=== PATIENT | female | born 2000 | race Caucasian/White ===

== ENCOUNTER 2024-06-23 11:09 | Outpatient (OUT) | payer OTHER, SELFPAY ==
--- NOTE | 2024-06-23 11:16 | US_ITS ---
[address] [address] Patient Name: FRANCK GRIFFIN MRN: [id number] date: 2000 Sex: F Assigned Patient Location: US Current Patient Location: US Accession/Order Number: [id number] Exam Date: 06/23/2024 11:17 Report Date: 06/23/2024 12:06 At the request of: SANJUANA KESSLER Procedure: US OB transvaginal EXAMINATION: US OB transvaginal HISTORY: Amenorrhea, Positive Examination COMPARISON: No relevant comparison available. FINDINGS: Transvaginal images Kang intrauterine gestation Gestational sac: 2.36 cm, 7 weeks 0 days CRL: 1.55 cm, 8 weeks 0 days Yolk sac: 2.3 mm Heart rate: 160 beats minute Cervix: Closed, 4.4 cm in length The uterus is normal The ovaries are normal Clinical age: 7 weeks 4 days Clinical OBED: 02/05/2025 Ultrasound age: 7 weeks 4 days Ultrasound OBED: 02/05/2025 US/US OB transvaginal IMPRESSION: Viable kang intrauterine gestation measuring 7 weeks 4 days Electronically authenticated by: JADE BURNS Date: 06/23/2024 12:06
== END 2024-06-23 11:10 | disposition home or self-care (01) ==
LOC: US 11:12
PROVIDERS: Visit Provider Midwife
DX: Z32.01 Encounter for pregnancy test, result positive (principal); Z3A.01 Less than 8 weeks gestation of pregnancy; N91.2 Amenorrhea, unspecified
CPT/HCPCS: 76817

== ENCOUNTER 2024-11-16 08:20 | Outpatient (RCR) | payer OTHER, SELFPAY ==
[2024-11-16 10:15] VITALS: BP 138/88; PULSE 85; TEMP 36.8; O2SAT 98
[2024-11-16] MEDS: RHO(D) IMMUNE GLOBULIN 1,500 UNIT SYRINGE 1500 UNIT IM (10:18)
== END 2024-11-17 08:14 | disposition home or self-care (01) ==
LOC: LAB 08:20
PROVIDERS: Visit Provider Midwife
DX: O26.893 Other specified pregnancy related conditions, third trimester (principal); Z67.91 Unspecified blood type, Rh negative; Z3A.00 Weeks of gestation of pregnancy not specified
CPT/HCPCS: 36415; 86850; 86900; 86901; 96372; J2791

== ENCOUNTER 2024-12-30 11:46 | Observation (INO) | payer OTHER, SELFPAY ==
--- OUTSIDE RECORDS SUMMARY | 2024-12-16 09:00 | XMS_ITS | Encounter Summary ---
Author Organization [facility] Address [address] [place] [address] Care Team Providers Care Wire Basket Maker Name Role Phone Rachelle Gibson MD Primary Care Provider [phone] Encounter Details Date Type Department Care Team (Latest Contact Info) Description 12/16/2024 9:00 AM EDT Routine [facility] [address] [place] [address] Fideila Varma CNM [address] [place] [phone] Encounter for care of first , third trimester ([facility]) (Primary Dx) Social History Tobacco Use Types Packs/Day Years Used Date Smoking Tobacco: Never Smokeless Tobacco: Never Alcohol Use Standard Drinks/Week Comments Not Currently 0 (1 standard drink = 0.6 oz pur e alcohol) Estimated Date of Delivery Comme nts Yes 02/04/2025 Based on last me nstrual period of 04/30/2024 (Exact Date) Sex and Gender Information Value Date Recorded Sex Assigned at Not on file Legal Sex Female 7:19 PM EDT Gender Identity Not on file Sexual Orientation Not on file documented as of this encounter Last Filed Vital Signs Vital Sign Reading Time Taken Comments Blood Pressure 118/80 12/16/2024 9:16 AM EDT Pulse - - Temperature - - Respiratory Rate - - Oxygen Saturation - - Inhaled Oxygen Concentration - - Weight 88.9 kg (196 lb) 12/16/2024 9:16 AM EDT Height - - Body Mass Index 31.16 06/13/2021 12:00 PM EST documented in this encounter Progress Notes * Fidelia Varma CNM - 12/16/2024 9:00 AM EDT Subjective No chief complaint on file. Martha Foreman is a 24 y.o. at 32w6d with a working estimated date of delivery of 02/04/2025, by Last Menstrual Period who presents for a routine visit. She denies vaginal bleeding, leakage of fluid, decreased movements, or contractions. OB History Para Term AB Living 1 SAB IAB Ectopic Multiple Live Births # Outcome Date GA Lbr Ra/2nd Weight Sex Type Anes PTL Lv 1 Current Her is complicated by: No complications Objective Physical Exam Weight: 196 lb Expected Total Weight Gain: 11 lb-19 lb Pregravid BMI: 30.53 BP: 118/80 Urine protein-negative Urine glucose-negative Assessment/Plan Diagnoses and all orders for this visit: Encounter for care of first , third trimester visit today. Patient is doing well, reports frequent, regular movement. No c/o at this visit. Denies pain, leaking of fluid, no bleeding and no contractions. Continue vitamin. Labs reviewed. GBS taken. Expected mode of delivery vaginal Follow up in 1 week for a routine visit. documented in this encounter Plan of Treatment Upcoming Encounters Date Type Department Care Team (Late st Contact Info) Description 01/12/2025 9:15 AM EDT Routine [facility] OB [address] [place] [address] Fidelia Varma CNM [facility] [place], [place] [phone] documented as of this encounter Visit Diagnoses Diagnosis Encounter for care of first , third trimester ([facility])- Primary documented in this encounter Care Teams Wire Basket Maker Relationship Specialty Start Date End Date Rachelle Gibson MD [address] [place] [phone] PCP - General Family Medicine 11/13/22 documented as of this encounter
--- OUTSIDE RECORDS SUMMARY | 2024-12-30 10:15 | XMS_ITS | Encounter Summary ---
Author Organization [facility] Address [address] [place] [address] Care Team Providers Care Check Out Cashier Name Role Phone Rachelle Gibson MD Primary Care Provider [phone] Encounter Details Date Type Department Care Team (Late st Contact Info) Description 12/30/2024 10:15 AM EDT Routine [facility] [address] [place] [phone] Fidelia Varma, [place] [address] Arrived Social History Tobacco Use Types Packs/Day Years [...] Sign Reading Time Taken Comments Blood Pressure 140/90 12/30/2024 10:16 AM EDT Pulse - - Temperature - - Respiratory Rate - - Oxygen Saturation - - Inhaled Oxygen Concentration - - Weight 88.9 kg (196 lb) 12/30/2024 10:16 AM EDT Height - - Body Mass Index 31.16 06/13/2021 12:00 PM EST documented in this encounter Plan of Treatment Upcoming Encounters Date Type Department Care Team (Late st Contact Info) Description 01/12/2025 9:15 AM EDT Routine [facility] [address] [place] [address] Fidelia Varma, CNM [address] [place] [address] documented as of this encounter Visit Diagnoses Not on filedocumented in this encounter Care Teams Check Out Cashier Relationship Specialty Start Date End Date Rachelle Gibson MD [address] [place] [address] PCP - General Family Medicine 11/13/22 documented as of this encounter
--- NOTE | 2024-12-30 11:48 | US_ITS ---
[place] [address] Patient Name: FRANCK GRIFFIN MRN: [id number] date: 2000 Sex: F Assigned Patient Location: [facility] Current Patient Location: [facility] Accession/Order Number: [id number] Exam Date: 12/30/2024 12:57 Report Date: 12/30/2024 12:58 At the request of: SANJUANA KESSLER APRN, CNM Procedure: US OB BPP w non-stress US OB BPP w non-stress 12/30/2024 12:29 PM SIGNS AND SYMPTOMS: ^na ^high blood pressure \S.br\ PROTOCOL: Transabdominal sonographic images of the gravid uterus COMPARISON: None FINDINGS: Estimated gestational age is 34 weeks and 6 days. Amniotic fluid index is 17.62 cm with the deepest vertical pocket measuring 5.6 cm. heart rate is 155 bpm. Biophysical profile: movements: 2/2 tone: 2/2 breathing movements: 2/2 Amniotic fluid volume: 2/2 US/US OB BPP w non-stress IMPRESSION: Biophysical profile score: 8/8 Impression dictated by: Denver Wadsworth M.D. 12/30/2024 12:58 PM Dictation Location: [facility] Electronically authenticated by: [id number] Y Date: 12/30/2024 12:58
--- OUTSIDE RECORDS SUMMARY | 2024-12-30 11:49 | XMS_ITS | Encounter Summary ---
Author Organization [facility] Address [address] [place] [address] Care Team Providers Care Financial Aid Advisor Name Role Phone Rachelle Gibson MD Primary Care Provider Encounter Details Date Type Department Care Team (Late Contact Info) Description 11/19/2024 Results Follow-Up [facility] [address] [place] [address] Tami Turpin MA Social History Tobacco Use Types Packs/Day Years [...] on file documented as of this encounter Plan of Treatment Upcoming Encounters Date Type Department Care Team (Late Contact Info) Description 01/12/2025 9:15 AM EDT Routine [facility] [address] [place] [address] Fidelia Varma, SHEM [address] [place] [address] documented as of this encounter Visit Diagnoses Not on filedocumented in this encounter Care Teams Financial Aid Advisor Relationship Specialty Start Date End Date Rachelle Gibson MD [facility] [place] [address] PCP - General Family Medicine 11/13/22 documented as of this encounter
--- OUTSIDE RECORDS SUMMARY | 2024-12-30 11:49 | XMS_ITS | Clinical Summary ---
Author Organization [facility] Address [address] [place] [address] Care Team Providers Care Humanities Instructor Name Role Phone Rachelle Gibson MD Primary Care Provider [phone] Allergies Active Allergy Reactions Criticality Noted Date Comments Minocycline Rash Low 06/26/2024 Medications Vit-Fe Fumarate-FA ( 1 PLUS 1 PO) Take by mouth Active Encounters Date Type Department Care Team Description 12/30/2024 10:15 AM EDT Routine [facility] [address] [place] [address] Fidelia Varma CNM Arrived 12/30/2024 Bamboo flowsheet [facility] [address] [place] [address] Fidelia Varma CNM 12/16/2024 9:00 AM EDT Routine [facility] [address] [place] [phone] Fidelia Varma CNM Encounter for care of first , third trimester ([facility]) (Primary Dx) 12/16/2024 Bamboo flowsheet [facility] [address] [place] [address] Fidelia Varma CNM 11/26/2024 8:45 AM EDT Ancillary Procedure [facility] ULTRASOUND [address] [facility] [address] [place] [phone] related condition in second trimester ([facility]) 11/26/2024 Travel 11/19/2024 Results Follow-Up [facility] [address] [place] [address] Tami Turpin MA 11/18/2024 8:45 AM EDT Routine [facility] OB [address] [place] [address] Fidelia Varma CNM Screening for diabetes mellitus (DM); Screening for iron deficiency anemia; related condition in second trimester ([facility]) 11/18/2024 Bamboo flowsheet [facility] OB [address] [place] [address] Fidelia Varma CNM 10/21/2024 8:30 AM EDT Routine [facility] [address] [place] [address] Fidelia Varma CNM Encounter for care of first , second trimester ([facility]) (Primary Dx) 10/21/2024 Results Follow-Up [facility] OB [address] [place] [address] Fidelia Varma CNM 10/21/2024 Bamboo flowsheet [facility] R OB [address] [place] [address] Fidelia Varma CNM from Last 3 Months Family History Relation Name Status Comments Father Alive Mother Alive Social History Tobacco Use Types Packs/Day Years Used Date Smoking Tobacco: Never Smokeless Tobacco: Never Tobacco Cessation:Counseling Given: Not Answered Alcohol Use Standard Drinks/Week Comments Not Currently [...] on file Sexual Orientation Not on file Last Filed Vital Signs Vital Sign Reading Time Taken Comments Blood Pressure 140/90 12/30/2024 10:16 AM EDT Pulse - - Temperature - - Respiratory Rate - - Oxygen Saturation - - Inhaled Oxygen Concentration - - Weight 88.9 kg (196 lb) 12/30/2024 10:16 AM EDT Height 168.9 cm (5' 6.5 ) 06/13/2021 12:00 PM ES T Body Mass Index 31.16 06/13/2021 12:00 PM EST Plan of Treatment Upcoming Encounters Date Type Department Care Team (Late st Contact Info) Description 01/12/2025 9:15 AM EDT Routine [facility] [address] [place] [address] Fidelia Varma, CNM [address] [place] [address] Health Maintenance Due Date Last Done Comments Influenza Vaccine (Season Ended) 2025 Procedures Procedure Name Priority Date/Time Associated Diagnosis Comments US OB FOLLOW UP TRANSABDOMINAL APPROACH Routine 11/26/2024 9:09 AM EDT related condition in second trimester ([facility]) CBC Routine 11/18/2024 9:55 AM EDT Screening for iron deficiency anemia GLUCOSE, GESTATIONAL SCREEN (50G)-135 CUTOFF Routine 11/18/2024 9:55 AM EDT Screening for diabetes mellitus (DM) from Last 3 Months Results * US OB follow up transabdominal approach (11/26/2024 9:09 AM EDT) Anatomical Region Laterality Modality Body Ultrasound 11/26/2024 6:37 PM EDT Narrative 11/26/2024 6:37 PM EDT EXAM: OB Ultrasound: REASON FOR EXAM: Growth. COMPARISON: 09/23/2024, 06/23/2024. TECHNIQUE: Grayscale and M-mode Doppler imaging is performed. FINDINGS: heart rate: 136 bpm DAYANA: 19.9 cm (9.0 - 23.4) BPD: 7.6 cm HC: 27.8 cm AC: 26.2 cm FL: 5.8 cm Cervix length: 3.4 cm GA for sonogram: 30.0 wks (27.6 - 32.5) OBED: 02/05/2025 Weight Estimate: Weight: 1558 gm /3 lbs, 6 oz (1330 - 1785 gm) Hadlock Normal: 1541 gm (1279 - 1803 gm) Hadlock Wt%: 53% for 29.9 wks LMP: 05/01/24 AGE BY LMP: 29 w 6 d AGE PRIOR US: 21 w 0 d AGE BY US TODAY: 30 w 3 d OBED BY LMP: 02/05/25 OBED PRIOR US: 02/02/25 OBED BY US TODAY: 02/01/25 Gestation: Single Position: Cephalic Placenta Location: Anterior Somatic movement: Yes IMPRESSION: Single live intrauterine gestation in cephalic position estimated at 30.0 weeks. This is concordant with the provided clinical dates and prior ultrasound. *This report is generated using voice recognition reporting (eKonnekt). On occasion [email or web address] erroneously drops words from the report or replaces the spoken word with similar sounding words. Please call with any questions/concerns regarding this report.* Dictated and transcribed 11/26/2024/teressa This report has been electronically signed and approved by the interpreting radiologist. Procedure Note Frandy Cortes MD - 11/26/2024 EXAM: OB Ultrasound: REASON FOR EXAM: Growth. COMPARISON: 09/23/2024, 06/23/2024. TECHNIQUE: Grayscale and M-mode Doppler imaging is performed. FINDINGS: heart rate: 136 bpm DAYANA: 19.9 cm (9.0 - 23.4) BPD: 7.6 cm HC: 27.8 cm AC: 26.2 cm FL: 5.8 cm Cervix length: 3.4 cm GA for sonogram: 30.0 wks (27.6 - 32.5) OBED: 02/05/2025 Weight Estimate: Weight: 1558 gm /3 lbs, 6 oz (1330 - 1785 gm) Hadlock Normal: 1541 gm (1279 - 1803 gm) Hadlock Wt%: 53% for 29.9 wks LMP: 05/01/24 AGE BY LMP: 29 w 6 d AGE PRIOR US: 21 w 0 d AGEBY US TODAY: 30 w 3 d OBED BY LMP: 02/05/25 OBED PRIOR US: 02/02/25 EDDBY US TODAY: 02/01/25 Gestation: Single Position: Cephalic Placenta Location: Anterior Somatic movement: Yes IMPRESSION: Single live intrauterine gestation in cephalic position estimated at 30.0weeks. This is concordant with the provided clinical dates and priorultrasound. *This report is generated using voice recognition reporting (eKonnekt).On occasion [email or web address] erroneously drops words from the report orreplaces the spoken word with similar sounding words. Please call with anyquestions/concerns regarding this report.* Dictated and transcribed 11/26/2024/teressa This report has been electronically signed and approved by theinterpreting radiologist. us Fidelia Varma CNM IMG OB US PROCEDURES Final R esult * GLUCOSE, GESTATIONAL SCREEN (50G)-135 CUTOFF (11/18/2024 9:55 AM EDT) GLUCOSE, GESTATIONAL SCREEN (50G)-135 CUTOFF 73 <135 mg/dL [facility] 11/18/2024 9:55 AM EDT 11/18/2024 3:23 PM EDT Narrative Resulting Agency Comment Performing Organization Information Site ID: [email or web address] Name: [facility] Address: [address] [place] [phone] Director: Rody Acharya us Fidelia Varma CNM LAB BLOOD ORDERABLES Final R esult [facility] * (ABNORMAL) CBC (11/18/2024 9:55 AM EDT) WHITE BLOOD CELL COUNT 12.3(H) 3.8 - 10.8 Thousand/u L [facility] RED BLOOD CELL COUNT 4.03 3.80 - 5.10 Million/uL [facility] HEMOGLOBIN 11.8 11.7 - 15.5 g/dL [facility] HEMATOCRIT 36.5 35.0 - 45.0 % [facility] MCV 90.6 80.0 - 100.0 fL [facility] MCH 29.3 27.0 - 33.0 pg [facility] MCHC 32.3 32.0 - 36.0 g/dL [facility] Comment: For adults, a slight decrease in the calculated MCHC value (in the range of 30 to 32 g/dL) is most likely not clinically significant; however, it should be interpreted with caution in correlation with other red cell parameters and the patient's clinical condition. RDW 12.8 11.0 - 15.0 % [facility] PLATELET COUNT 335 140 - 400 Thousand/u L [facility] MPV 9.9 7.5 - 12.5 fL [facility] Blood Venous blood specimen / Unknown 11/18/2024 9:55 AM EDT 11/18/2024 3:23 PM EDT Narrative Resulting Agency Comment Performing Organization Information Site ID: [email or web address] Name: [facility] Address: [address] [place] [phone] Director: Rody Acharya Fidelia NOWAK LAB BLOOD ORDERABLES Final R esult [facility] from Last 3 Months Insurance [employer] Care Teams Humanities Instructor Relationship Specialty Start Date End Date Rachelle Gibson MD [address] [place] [address] PCP - General Family Medicine 11/13/22
--- OUTSIDE RECORDS SUMMARY | 2024-12-30 11:49 | XMS_ITS | Encounter Summary ---
Author Organization [facility] Address [address] [place] [address] Care Team Providers Care Machine Clothing Replacer Name Role Phone Rachelle Gibson MD Primary Care Provider [phone] Encounter Details Date Type Department Care Team (Late st Contact Info) Description 06/23/2024 Clinisync Result Encounter [facility] External Department Unsolicited Sanjuana Varma CNM [facility] [place], [place] [phone] Social History Tobacco Use Types Packs/Day Years Used Date Smoking Tobacco: Never Assessed Comments Unknown Sex and Gender Information Value Date Recorded Sex Assigned at Not on file Legal Sex Female 7:19 PM EDT Gender Identity Not on file Sexual Orientation Not on file documented as of this encounter Plan of Treatment Upcoming Encounters Date Type Department Care Team (Late st Contact Info) Description 01/12/2025 9:15 AM EDT Routine [facility] OB [address] [place] [phone] Sanjuana Varma CN [address] [place], [place] [phone] documented as of this encounter Procedures Procedure Name Priority Date/Time Associated Diagnosis Comments US OB TRANSVAGINAL 06/23/2024 12 :06 PM EST documented in this encounter Results * US OB TRANSVAGINAL (06/23/2024 12:06 PM EST) Anatomical Region Laterality Modality Other 06/23/2024 12:0 6 PM EST Narrative 06/23/2024 12:08 [place] [address] Ultrasound Report Signed Patient: FRANCK GRIFFIN MR#: [id number] : 2000 Acct:[id number] Age/Sex: 24 / F ADM Date: 06/23/24 Loc: US Attending Dr: SANJUANA VARMA APRN, CNM Ordering Physician: SANJUANA VARMA APRN, CNM Date of Service: 06/23/24 Procedure(s): US OB transvaginal Accession Number(s): [id number] cc: SANJUANA VARMA APRN, CNM; Physician,Non-Staff M.Luis Enrique [place] [id number] Patient Name: FRANCK GRIFFIN MRN: [id number] date: 2000 Sex: F Assigned Patient Location: US Current Patient Location: US Accession/Order Number: [id number] Exam Date: 06/23/2024 11:17 Report Date: 06/23/2024 12:06 At the request of: SANJUANA VARMA Procedure: US OB transvaginal EXAMINATION: US OB transvaginal HISTORY: Amenorrhea, Positive Examination COMPARISON: No relevant comparison available. FINDINGS: Transvaginal images Kang intrauterine gestation Gestational sac: 2.36 cm, 7 weeks 0 days CRL: 1.55 cm, 8 weeks 0 days Yolk sac: 2.3 mm Heart rate: 160 beats minute Cervix: Closed, 4.4 cm in length The uterus is normal The ovaries are normal Clinical age: 7 weeks 4 days Clinical OBED: 02/05/2025 Ultrasound age: 7 weeks 4 days Ultrasound OBED: 02/05/2025 US/US OB transvaginal IMPRESSION: Viable kang intrauterine gestation measuring 7 weeks 4 days Electronically authenticated by: JADE BURNS Date: 06/23/2024 12:06 Dictated By: Jade Burns M.D. Signed By: 06/23/24 1208 DD/ 1206 TD/TT: Hedis Abstractor: Procedure Note Radiology, Radiologist, MD - 06/23/2024 [place] [address] Ultrasound Report Signed Patient: FRANCK GRIFFIN RMR#: [id number] : 2000Acct:[id number] Age/Sex: 24 / FADM Date: 06/23/24 Loc: US Attending Dr: SANJUANA VARMA APRN, CNM Ordering Physician: SANJUANA VARMA APRN, CNM Date of Service: 06/23/24 Procedure(s): US OB transvaginal Accession Number(s): [id number] cc: SANJUANA VARMA APRN, CNM; Physician,Non-Staff M.DVirgil [place] [address] Patient Name: FRANCK GRIFFIN MRN: [id number] date: 2000 Sex: F Assigned Patient Location: US Current Patient Location: US Accession/Order Number: [id number] Exam Date: 06/23/2024 11:17 Report Date: 06/23/2024 12:06 At the request of: SANJUANA VARMA Procedure: US OB transvaginal EXAMINATION: US OB transvaginal HISTORY: Amenorrhea, Positive Examination COMPARISON: No relevant comparison available. FINDINGS: Transvaginal images Kang intrauterine gestation Gestational sac: 2.36 cm, 7 weeks 0 days CRL: 1.55 cm, 8 weeks 0 days Yolk sac: 2.3 mm Heart rate: 160 beats minute Cervix: Closed, 4.4 cm in length The uterus is normal The ovaries are normal Clinical age: 7 weeks 4 days Clinical OBED: 02/05/2025 Ultrasound age: 7 weeks 4 days Ultrasound OBED: 02/05/2025 US/US OB transvaginal IMPRESSION: Viable kang intrauterine gestation measuring 7 weeks 4 days Electronically authenticated by: JADE BURNS Date: 06/23/2024 12:06 Dictated By: Jade Burns M.D. Signed By:06/23/24 1208 DD/ 120 TD/TT: Hedis Abstractor: us Sanjuana Varma CNM [facility] Final Resu lt documented in this encounter Visit Diagnoses Not on filedocumented in this encounter Care Teams Machine Clothing Replacer Relationship Specialty Start Date End Date Rachelle Gibson MD [address] [place] [address] PCP - General Family Medicine 11/13/22 documented as of this encounter
--- OUTSIDE RECORDS SUMMARY | 2024-12-30 11:49 | XMS_ITS | Encounter Summary ---
Author Organization [facility] Address [address] [place] [address] Care Team Providers Care Egg Breaker Name Role Phone Rachelle Gibson MD Primary Care Provider [phone] Encounter Details Date Type Department Care Team (Late st Contact Info) Description 12/30/2024 Bamboo flowsheet [facility] OB [address] [place] [address] Fidelia Varma CN [address] [place], [place] [phone] Social History Tobacco Use Types Packs/Day Years [...] AM EDT Routine [facility] OB [address] [place] [address] Fidelia Varma CNM [address] [place], [place] [phone] documented as of this encounter Visit Diagnoses Not on filedocumented in this encounter Care Teams Egg Breaker Relationship Specialty Start Date End Date Rachelle Gibson MD [address] [place] [address] PCP - General Family Medicine 11/13/22 documented as of this encounter
--- OUTSIDE RECORDS SUMMARY | 2024-12-30 11:49 | XMS_ITS | Encounter Summary ---
Author Organization [facility] Address [address] [place] [address] Care Team Providers Care Deicer Kit Assembler Name Role Phone Rachelle Gibson MD Primary Care Provider [phone] Encounter Details Date Type Department Care Team (Late st Contact Info) Description 10/21/2024 Results Follow-Up [facility] OB [address] [place] [address] Fidelia Varma CN [address] [place], [place] [phone] Social History Tobacco Use Types Packs/Day Years [...] AM EDT Routine [facility] OB [address] [place] [address] Fidelia Varma, SHEM [address] [place], [place] [phone] documented as of this encounter Visit Diagnoses Not on filedocumented in this encounter Care Teams Deicer Kit Assembler Relationship Specialty Start Date End Date Rachelle Gibson MD [address] [place] [address] PCP - General Family Medicine 11/13/22 documented as of this encounter
--- OUTSIDE RECORDS SUMMARY | 2024-12-30 11:49 | XMS_ITS | Encounter Summary ---
Author Organization [facility] Address [address] [place] [address] Care Team Providers Care Airplane Designer Name Role Phone Rachelle Gibson MD Primary Care Provider [phone] Encounter Details Date Type Department Care Team (Late st Contact Info) Description 12/16/2024 Bamboo flowsheet [facility] OB [address] [place] [address] Fidelia Varma CN [address] [place], [place] [phone] Social History Tobacco Use Types Packs/Day Years [...] AM EDT Routine [facility] OB [address] [place] [address] Fidelia Varma CNM [address] [place], [place] [phone] documented as of this encounter Visit Diagnoses Not on filedocumented in this encounter Care Teams Airplane Designer Relationship Specialty Start Date End Date Rachelle Gibson MD [address] [place] [address] PCP - General Family Medicine 11/13/22 documented as of this encounter
[2024-12-30 11:55] VITALS: BP 141/89; PULSE 88
[2024-12-30 12:17] VITALS: BP 138/102; PULSE 97
[2024-12-30 12:20] LABS: Basophils Percent Auto 0.3 % (0.2-2.0); Eosinophils Absolute Auto 0.2 10^3/uL (0.0-0.7); Eosinophils Percent Auto 1.4 % (0.9-7.0); Hematocrit 33.7 % (36.0-48.0); Hemoglobin 11.5 g/dL (12.0-16.0); Immature Granulocytes Abs Auto 0.12 10^3/uL (0.00-0.03); Immature Granulocytes Pct Auto 0.9 % (0.0-0.5); Lymphocytes Absolute Auto 1.5 10^3/uL (1.2-3.8); Lymphocytes Percent Auto 11.6 % (20.5-60.0); Mean Corpuscular HGB Conc 34.1 g/dL (29.9-35.2); Mean Corpuscular Hemoglobin 29.2 pg (26.7-34.0); Mean Corpuscular Volume 85.5 fL (81.0-99.0); Mean Platelet Volume 10.2 fL (9.5-13.5); Monocytes Absolute Auto 0.9 10^3/uL (0.3-0.8); Neutrophils Absolute Auto 10.4 10^3/uL (1.4-6.5); Neutrophils Percent Auto 78.8 % (43.0-75.0); Platelet Count 312 10^3/uL (150-450); Red Blood Count 3.94 10^6/uL (4.20-5.40); Red Cell Distribution Width 12.3 % (11.0-15.0); White Blood Count 13.2 10^3/uL (4.0-11.0)
[2024-12-30 12:26] LABS: Anion Gap 14.5; Calcium 8.8 mg/dL (8.5-10.1); Carbon Dioxide 22.3 mmol/L (21.0-32.0); Chloride 103 mmol/L (98-107); Estimated GFR (African America >60 (>=60 mL/min/1.73m^2); Estimated GFR (Non-African Ame >60 (>=60 mL/min/1.73m^2); Glucose 80 mg/dL (74-106); Potassium 3.8 mmol/L (3.5-5.1); Sodium 136 mmol/L (136-145)
[2024-12-30 12:46] VITALS: BP 141/92; PULSE 95
[2024-12-30 12:47] LABS: Bilirubin Urine NEGATIVE (NEGATIVE); Blood Urine NEGATIVE (NEGATIVE); Clarity Urine CLEAR (CLEAR); Color Urine LT. YELLOW (YELLOW); Glucose Urine UA NEGATIVE (NEGATIVE); Ketones Urine NEGATIVE (NEGATIVE); Leukocyte Esterase Urine LARGE (NEGATIVE); Nitrite Urine NEGATIVE (NEGATIVE); Protein Urine NEGATIVE (NEG/TRACE); Urobilinogen Urine 0.2 EU/dL (0.2-1.0); pH Urine 7.5 (5.0-9.0)
[2024-12-30 12:48] LABS: Urine Microscopic Indicated YES
[2024-12-30 13:00] LABS: Alanine Aminotransferase 19 U/L (14-59); Albumin Globulin Ratio 0.5; Albumin Level 2.4 g/dL (3.4-5.0); Alkaline Phosphatase 215 U/L (46-116); Aspartate Amino Transferase 19 U/L (15-37); Bilirubin Direct <0.1 mg/dL (0.0-0.2); Bilirubin Total 0.2 mg/dL (0.2-1.0); Globulin 4.7 g/dL; Total Protein 7.1 g/dL (6.4-8.2)
[2024-12-30 13:02] LABS: Bacteria Urine SMALL #/HPF (NONE SEEN); Cast Seen? NONE SEEN #/LPF (NONE SEEN); Crystals Seen? None Seen #/HPF (None Seen); Mucus Urine TRACE (NONE SEEN); RBC Urine 0-2 #/HPF (0-2); Sperm Urine SEEN; Squamous Epithelial Cell Urine MANY #/LPF (NONE/RARE); Urine Culture Indicated YES-LC
[2024-12-30 13:05] LABS: Creatinine Urine Random 119.65 mg/dL (20.00-300.00); Protein Creatinine Ratio Urine 0.21; Total Protein Urine Random 24.8 mg/dL (<=11.9)
[2024-12-30 13:35] VITALS: BP 125/84; PULSE 84
[2024-12-30 14:04] LABS: Lactate Dehydrogenase 245 U/L (81-234)
[2024-12-30] MEDS: LABETALOL HCL 100 MG TABLET PO (14:21)
[2024-12-30 15:16] VITALS: BP 126/71; PULSE 77
[2024-12-30] MEDS: CEPHALEXIN 500 MG CAPSULE PO (15:17)
== END 2024-12-30 16:01 | disposition home or self-care (01) ==
LOC: FBC 11:47
PROVIDERS: Admitting Provider Midwife; Visit Provider Midwife
DX: O16.3 Unspecified maternal hypertension, third trimester (principal); Z3A.34 34 weeks gestation of pregnancy
CPT/HCPCS: 36415; 76818; 80048; 80076; 81001; 82570; 83615; 84156; 84550; 85025; 87086; G0378; G0379

== ENCOUNTER 2025-01-03 13:14 | Inpatient (IN) | payer OTHER, SELFPAY ==
[2025-01-03] VITALS (25 sets, daily range): BP systolic 108–163; BP diastolic 53–92; PULSE 74–142; TEMP 36.8–36.9
--- OUTSIDE RECORDS SUMMARY | 2025-01-03 13:18 | XMS_ITS | CCD ---
Author Organization [facility] Care Team Providers Care Fire Suppression Captain Name Role Phone Arthur RAMIREZ, Rachelle Kapoor Primary Care Provider [phone] FLORO, SANJUANA L Attending Unavailable FLORO, SANJUANA L Attending Unavailable FLORO, SANJUANA L Referring Unavailable FLORO, SANJUANA L Attending Unavailable FLORO, SANJUANA L Attending Unavailable FLORO, SANJUANA L Referring Unavailable FLORO, SANJUANA L Attending Unavailable FLORO, SANJUANA L Attending Unavailable FLORO, SANJUANA L Attending Unavailable FLORO, SANJUANA L Attending Unavailable Allergies Allergy Classification Reported Allergen(s) Allergy Type Date of Onset Reaction(s) Facility (20 sources) Minocycline Drug Allergy 06-26-2024 Rash [facility] Medications Current Medications Medication Drug Class(es) Dates Sig (Normalized) Sig (Original) cephalexin 500 mg oral capsule (3 sources) Cephalosporin Antibacterial Start: 12-30-2024 End: 01-09-2025 cephalexin (Keflex) 500 MG capsule Indications: Elevated blood pressure affecting in third trimester, antepartum ([facility]) , Acute cystitis without hematuria Take 1 capsule (500 mg) by mouth in the morning and 1 capsule (500 mg) at noon and 1 capsule (500 mg) in the evening and 1 capsule (500 mg) before bedtime. Do all this for 10 days. 40 capsule 12/30/2024 01/09/2025 Active labetalol hydrochloride 100 mg oral tablet (3 sources) beta-Adrenergic Azalea Start: 12-30-2024 take 1 tablet by mouth once labetalol (Normodyne) 100 MG tablet Indications: Acute cystitis without hematuria Take 1 tablet (100 mg) by mouth 1 (one) time for 1 dose 30 tablet 2 12/30/2024 Active ondansetron 8 mg disintegrating oral tablet (2 sources) Serotonin-3 Receptor Antagonist Start: 08-26-2024 End: 09-25-2024 take 1 tablet by mouth every eight hours for nausea ondansetron ODT (Zofran-ODT) 8 MG disintegrating tablet Indications: Nausea/vomiting in Take 1 tablet (8 mg) by mouth every 8 (eight) hours if needed for nausea or vomiting 20 tablet 1 08/26/2024 09/25/2024 Active Vit-Fe Fumarate-FA ( 1 PLUS 1 PO) (11 sources) Vit-Fe Fumarate-FA ( 1 PLUS 1 PO) Take by mouth Active Completed/Discontinued Medications Medication Drug Class(es) Dates Sig (Normalized) Sig (Original) amoxicillin 500 mg / clavulanate 125 mg oral tablet (3 sources) Penicillin-class Antibacterial Start: 07-21-2024 End: 07-28-2024 take 1 tablet by mouth in the morning amoxicillin-clav ulanate (Augmentin) 500-125 MG tablet Indications: Acute cystitis without hematuria Take 1 tablet (500 mg) by mouth in the morning and 1 tablet (500 mg) before bedtime. Do all this for 7 days. 14 tablet 07/21/2024 07/28/2024 Problems Problem Classification Problem Date Documented Da te Episodic/Chronic Hypertension complicating ; childbirth and the puerperium (2 sources) Hypertension complicating ; Translations: [Unspecified maternal hypertension, third trimester] 12-30-2024 Chronic Menstrual disorders (1 source) Amenorrhea; Translations: [Amenorrhea, unspecified] 06-26-2024 Chronic Other complications of (4 sources) Finding related to ; Translations: [ related conditions, unspecified, second trimester] 08-26-2024 Episodic Other complications of (2 sources) Vomiting of , unspecified; Translations: [Unspecified vomiting of , unspecified as to episode of care or not applicable] 08-26-2024 Episodic Other and delivery including normal (9 sources) test positive; Translations: [Encounter for test, result positive] 06-26-2024 Episodic Other screening for suspected conditions (not mental disorders or infectious disease) (6 sources) Cancer cervix screening status; Translations: [Encounter for screening for malignant neoplasm of cervix] 07-21-2024 Episodic Urinary tract infections (4 sources) Acute cystitis; Translations: [Acute cystitis without hematuria] 07-21-2024 Episodic Results Test Name Value Interpretation Reference Range Facility ALL CBC WITH AUTO DIFFon BASOPHILS ABSOLUTE AUTO 0 N [facility] Basophils/100 WBC (Bld) 0.3 % 0.2 - 2.0 % [facility] Eosinophils/100 WBC (Bld) 1.4 % 0.9 - 7.0 % [facility] Erythrocyte distribution width (RBC) [Ratio] 12.3 % 11.0 - 15.0 % [facility] Hematocrit (Bld) [Volume fraction] 33.7 % Low 36.0 - 48.0 % [facility] Hemoglobin (Bld) [Mass/Vol] 11.5 g/dL Low 12.0 - 16.0 g/dL [facility] IMMATURE GRANULOCYTES ABS AUTO 0.12 High [facility] Immature granulocytes/100 WBC (Bld) 0.9 % High 0.0 - 0.5 % [facility] Interpretation and review of laboratory results Abnormal [facility] LYMPHOCYTES ABSOLUTE AUTO 1.5 [facility] Lymphocytes/100 WBC (Bld) 11.6 % Low 20.5 - 60.0 % [facility] MCH (RBC) [Entitic mass] 29.2 pg 26. 7 - 34.0 pg [facility] MCHC (RBC) [Mass/Vol] 34.1 g/dL 29.9 - 35.2 g/dL [facility] MCV (RBC) [Entitic vol] 85.5 fL 81.0 - 99.0 fL [facility] MONOCYTES ABSOLUTE AUTO 0.9 High [address] [facility] Monocytes/100 WBC (Bld) 7 % 1.7 - 12.0 % [facility] NEUTROPHILS ABSOLUTE AUTO 10.4 High [facility] Neutrophils/100 WBC (Bld) 78.8 % High 43.0 - 75.0 % [facility] Platelet mean volume (Bld) [Entitic vol] 10.2 fL 9.5 - 13.5 fL [facility] TBH EO # 0.2 [facility] TBH PLT 312 [facility] TB RBC 3.94 Low [facility] TB WBC 13.2 High [facility] US OB BPP W NON-STRESS on 12-30-[address] [address] Ultrasound Report Signed Patient: FRANCK GRIFFIN MR#: [id number] : 2000 Acct:[id number] Age/Sex: 24 / F ADM Date: Loc: [facility] 250-[address]: SANJUANA VARMA APRN, CNM Ordering Physician: SANJUANA VARMA APRN, CNM Date of Service: 12/30/24 Procedure(s): US OB BPP w non-stress Accession Number(s): [id number] cc: SANJUANA VARMA APRN, CNM; Physician,Non-Staff [place] [address] Patient Name: FRANCK GRIFFIN MRN: [facility]:[id number] date: 2000 Sex: F Assigned Patient Location: [facility] Current Patient Location: [facility] Accession/Order Number: [id number] Exam Date: 12/30/2024 12:57 Report Date: 12/30/2024 12:58 At the request of: SANJUANA VARMA APRN, CNM Procedure: US OB BPP w non-stress US OB BPP w non-stress 12/30/2024 12:29 PM SIGNS AND SYMPTOMS: na high blood pressure S.br PROTOCOL: Transabdominal sonographic images of the gravid uterus COMPARISON: None FINDINGS: Estimated gestational age is 34 weeks and 6 days. Amniotic fluid index is 17.62 cm with the deepest vertical pocket measuring 5.6 cm. heart rate is 155 bpm. Biophysical profile: movements: 2/2 tone: 2/2 breathing movements: 2/2 Amniotic fluid volume: 2/2 US/US OB BPP w non-stress IMPRESSION: Biophysical profile score: 8/8 Impression dictated by: Denver Wadsworth M.D. 12/30/2024 12:58 PM Dictation Location: [place] [address] Electronically authenticated by: [id number] Y Date: 12/30/2024 12:58 Dictated By: Denver Wadsworth M.D. Signed By: 12/30/24 1301 DD/ 1258 TD/TT: Medical Library Assistant: [facility] Radiology, Radiologist, MD - 12/30/[address] [address] Ultrasound Report Signed Patient: FRANCK GRIFFIN MR#: [id number] : 2000 Acct:[id number] Age/Sex: 24 / F ADM Date: Loc: [facility] 250-[address]: SANJUANA VARMA APRN, CNM Ordering Physician: SANJUANA VARMA APRN, CNM Date of Service: 12/30/24 Procedure(s): US OB BPP w non-stress Accession Number(s): [id number] cc: SANJUANA VARMA APRN, CNM; Physician,Non-Staff M.[facility]gil [place] [id number] Patient Name: FRANCK GRIFFIN MRN: [id number] date: 2000 Sex: F Assigned Patient Location: [facility] Current Patient Location: [facility] Accession/Order Number: [id number] Exam Date: 12/30/2024 12:57 Report Date: 12/30/2024 12:58 At the request of: SANJUANA VARMA APRN, CNM Procedure: US OB BPP w non-stress US OB BPP w non-stress 12/30/2024 12:29 PM SIGNS AND SYMPTOMS: na high blood pressure S.br PROTOCOL: Transabdominal sonographic images of the gravid uterus COMPARISON: None FINDINGS: Estimated gestational age is 34 weeks and 6 days. Amniotic fluid index is 17.62 cm with the deepest vertical pocket measuring 5.6 cm. heart rate is 155 bpm. Biophysical profile: movements: 2/2 tone: 2/2 breathing movements: 2/2 Amniotic fluid volume: 2/2 US/US OB BPP w non-stress IMPRESSION: Biophysical profile score: 8/8 Impression dictated by: Denver Wadsworth M.D. 12/30/2024 12:58 PM Dictation Location: [place] [address] Electronically authenticated by: [id number] Y Date: 12/30/2024 12:58 Dictated By: Denver Wadsworth M.D. Signed By: 12/30/24 1301 DD/ 1258 TD/TT: Medical Library Assistant: [facility] Radiology Study observation (narrative) [facility] US OB BPP W NON-STRESS Ordered By: Radiologist Radiology on 12-30-2024 [facility] Work Phone: US OB FOLLOW UP TRANSABDOMIN AL APPROACHon 11-26-2024 US OB FOLLOW UP TRANSABDOMINAL APPROACH EXAM: OB Ultrasound: REASON FOR EXAM: Growth. [...] report is generated using voice recognition reporting (Vendscreene). On occasion PowerScribe erroneously drops words from the report or replaces the spoken word with similar sounding words. Please call with any questions/concerns regarding this report.* Dictated and transcribed 11/26/2024/teressa This report has been electronically signed and approved by the interpreting radiologist. Normal Not Available US OB 14+ WEEKS ANATOMY SCAN on 09-23-2024 US OB 14+ WEEKS ANATOMY SCAN TITLE OF EXAM: OB Ultrasound: REASON FOR EXAM: survey. COMPARISON: 06/23/2024 TECHNIQUE: Grayscale and M-mode Doppler imaging is performed. FINDINGS: heart rate: 141 bpm DAYANA: 14.5 cm (9.4-21.3) BPD: 5.0 cm HC: 18.6 cm AC: 15.7 cm FL: 3.5 cm CER: 2.0 cm GA for sonogram: 20.7 wk (19.3-22.1) Cervix length: 4.1 cm OBED: 02/05/2025 Weight Estimate: Weight: 388 gm / 0 lbs, 13 oz (331-444 gm) Hadlock Normal: 379 gm (314-443 gm) Hadlock Wt%: 58% for 20.7 wks PRESENTATION: Cephalic CARDIAC ACTIVITY 141 bpm ACTIVITY: Yes PLACENTA LOCATION: Anterior PLACENTA PREVIA: None PLACENTA GRADE: 0 CERVIX: Normal, 4.1 cm length Amniotic Fluid Volume: Subjective: Normal. DAYANA: 14.50 cm. ANATOMIC SURVEY: STOMACH: NORMAL KIDNEYS: NORMAL BLADDER: NORMAL SPINE: NORMAL Cervical: NORMAL Thoracic: NORMAL Lumbar/Sacral: NORMAL UMBILICAL CORD: Placental Insertion: NORMAL Insertion: NORMAL 3-vessel cord: NORMAL INTRACRANIAL: Cerebellum/Posterio r Fossa: NORMAL Brain/CSF spaces: NORMAL ARMS/LEGS: NORMAL NOSE/LIPS: NORMAL NASAL BONE: NORMAL AORTA: NORMAL DIAPHRAGM: NORMAL BOWEL: NORMAL 4- CHAMBERED HEART: NORMAL CARDIAC LVOT: NORMAL CARDIAC RVOT: NORMAL HEART AND STOMACH ARE ON THE SAME SIDE: NORMAL LMP: 05/01/24 AGE BY LMP: 20 w 4 d AGE PRIOR US: 20w 4 d AGE BY US TODAY: 21 w 4 d OBED BY LMP: 02/11/25 OBED PRIOR US: 02/05/25 OBED BY US TODAY: 02/02/25 Interval Growth Assessment: Normal IMPRESSION: Normal progress of growth. No anatomic abnormalities identified. *This report is generated using voice recognition reporting (Vendscreene). On occasion StyleTrekcribe erroneously drops words from the report or replaces the spoken word with similar sounding words. Please call with any questions/concerns regarding this report.* Dictated and transcribed 09/23/24/dpd This report has been electronically signed and approved by the interpreting radiologist. Normal Not Available Laboratory - Cytologyon 07-08 Ladle Liner Helper Cyto stain Nom (Cvx/Vag) [ID] [facility] Comment on above: ASD, CT(ASCP) screen ing location: [place] [address]. JEH, CT(ASCP) CT scr eening location: [place] [address]. Cytology study comment Cyto stain Matt (Cvx/Vag) [Interp] [facility] Comment on above: This Pap test has be en evaluated with computer assisted technology. Microorganism identified Cyto stain Nom (Cvx/Vag) [facility] Comment on above: Fungal organisms mor phologically consistent with Nora spp. Microscopic observation Cyto stain Nom (Cvx) [facility] Comment on above: Cytology Results: Ne gative for intraepithelial lesion or malignancy. Specimen source Cyto stain Nom (Cvx/Vag) [facility] Comment on above: Cervix Statement of adequacy Cyto stain (Cvx/Vag) [Interp] [facility] Comment on above: Satisfactory for mandie luation. Endocervical/transformation zone component absent. Laboratory - Microbiology an d Antimicrobial susceptibilityon 07-25-2024 HPV 16 DNA Probe+sig amp Ql (Cvx) Not detected Not Detected [facility] HPV 16+18+31+33+35+39+45+51+ 52+56+58+59+66+68 DNA JUAN DIEGO+probe Ql (Cvx) Detected Abnormal NOT DETECTED [facility] Comment on above: Detected One or more High Risk HPV types (16,18,31,33, 35,39,45,51,52,56,58,59,66,68) was detected. Methodology: Real Time PCR HPV 18 DNA Probe+sig amp Ql (Cvx) Not detected Not Detected [facility] Comment on above: Methodology: Real Ti me PCR No Panel Informationon 07-25 (ALWAYS MESSAGE) [facility] Comment on above: EXPLANATORY NOTE: The Pap is a screening test for cervical cancer. It is not a diagnostic test and is subject to false negative and false positive results. It is most reliable when a satisfactory sample, regularly obtained, is submitted with relevant clinical findings and history, and when the Pap result is evaluated along with historic and current clinical information. Clinical information [facility] Comment on above: None given Date of previous biopsy [facility] Comment on above: NONE GIVEN Date of previous PAP smear [facility] Comment on above: NONE GIVEN Interpretation and review of laboratory results Abnormal [facility] Last menstrual period start date [facility] Comment on above: NONE GIVEN Performing Organization Information Site ID: AMD Name: [email or web address] [facility] Address: [address] [place] Director: Hiren Ash M.D.,PhD Site ID: [id number] Name: [facility] Address: [address] [place] [address], [address] [place] [phone] Director: Bennett Mays MD [facility] Performing Organization Information Site ID: AMD Name: [email or web address] [facility] Address: [id number] [place] [address] Dr [place] Director: Hiren Ash M.D.,PhD [facility] ABO/Rhon 06-30-2024 ABO group Nom (Bld) A [facility] Rh Nom (Bld) Negative [facility] Comment on above: For additional information, please refer to http://education.Preferred [employer]/faq/QJK217 (This link is being provided for informational/ educational purposes only.) Antibody screenon 06-30-2024 Blood group antibody screen Ql Detected [facility] Comment on above: Reference range No antibodies detected This assay is a screening test for the detection of red blood cell antibodies. The test is not to be used for pretransfusion screening or for the medical management of an alloimmunized . CBC panel Auto (Bld)on 06-30 Erythrocyte distribution width (RBC) [Ratio] 12.2 % 11.0 - 15.0 % [facility] Hematocrit (Bld) [Volume fraction] 42.3 % 35.0 - 45.0 % [facility] Hemoglobin (Bld) [Mass/Vol] 14.3 g/dL 11.7 - 15.5 g/dL [facility] MCH (RBC) [Entitic mass] 30 pg 27. 0 - 33.0 pg [facility] MCHC (RBC) [Mass/Vol] 33.8 g/dL 32.0 - 36.0 g/dL [facility] Comment on above: For adults, a slight decrease in the calculated MCHC value (in the range of 30 to 32 g/dL) is most likely not clinically significant; however, it should be interpreted with caution in correlation with other red cell parameters and the patient's clinical condition. MCV (RBC) [Entitic vol] 88.7 fL 80.0 - 100.0 fL [facility] Platelet mean volume (Bld) [Entitic vol] 10.2 fL 7.5 - 12.5 fL [facility] Platelets (Bld) [#/Vol] 365 10*3/uL [facility] RBC (Bld) [#/Vol] 4.77 10*6/uL [facility] WBC (Bld) [#/Vol] 10.2 10*3/uL [facility] HIV-1 and HIV-2 antibodieson 06-30-2024 HIV 1+2 Ab+HIV1 p24 Ag IA Ql Non-Reactive NON-REACTIVE [facility] Comment on above: HIV-1 antigen and HI V-1/HIV-2 antibodies were not detected. There is no laboratory evidence of HIV infection. PLEASE NOTE: This information has been disclosed to you from records whose confidentiality may be protected by state law. If your state requires such protection, then the state law prohibits you from making any further disclosure of the information without the specific written consent of the person to whom it pertains, or as otherwise permitted by law. A general authorization for the release of medical or other information is NOT sufficient for this purpose. For additional information please refer to http://education.[employer].SoloLearn/faq/LUL948 (This link is being provided for informational/ educational purposes only.) The performance of this assay has not been clinically validated in patients less than 2 years old. Hemoglobin A1con 06-30-2024 HbA1c (Bld) [Mass fraction] 5.3 % [facility] Comment on above: For the purpose of s creening for the presence of diabetes: <5.7% Consistent with the absence of diabetes 5.7-6.4% Consistent with increased risk for diabetes (prediabetes) > or =6.5% Consistent with diabetes This assay result is consistent with a decreased risk of diabetes. Currently, no consensus exists regarding use of hemoglobin A1c for diagnosis of diabetes in children. According to [place] Diabetes Association (ADA) guidelines, hemoglobin A1c <7.0% represents optimal control in non- diabetic patients. Different metrics may apply to specific patient populations. Standards of Medical Care in Diabetes(ADA). Hepatitis B surface antigeno n 06-30-2024 HBV surface Ag IA Ql Non-Reactive NON-REACTIVE [facility] Comment on above: For additional information, please refer to http://education.[facility]/faq/AYE163 (This link is being provided for informational/ educational purposes only.) Hepatitis C antibodyon 06-30 HCV Ab IA Ql Non-Reactive NON-REACTIVE [facility] Comment on above: HCV antibody was non-reactive. There is no laboratory evidence of HCV infection. In most cases, no further action is required. However, if recent HCV exposure is suspected, a test for HCV RNA (test code 97840) is suggested. For additional information please refer to http://education.[facility]/faq/HDA11n6 (This link is being provided for informational/ educational purposes only.) No Panel Informationon 06-30 MULTIPLE COLLECTION TIMES FOR SAME TEST TYPE. [employer] Organization Information Site ID: [id number] Name: [email or web address] Address: [address] [place] [address], [address] [place] [place] [phone] Director: Bennett Mays MD [facility] RPRon 06-30-2024 Reagin Ab RPR Ql (S) Non-Reactive NON-REACTIVE [facility] Rubella antibody, IgGon 06-08 Rubella virus IgG Qn (S) 2.24 [IU]/mL Index [facility] Comment on above: Index Interpretation ----- <0.90 Not consistent with immunity 0.90-0.99 Equivocal > or = 1.00 Consistent with immunity The presence of rubella IgG antibody suggests immunization or past or current infection with rubella virus. TSH W/REFLEX TO FT4on 2023 TSH Qn 1.07 m[IU]/L mIU/L [facility] Comment on above: Reference Range > or = 20 Years 0.40-4.50 Ranges First trimester 0.26-2.66 Second trimester 0.55-2.73 Third trimester 0.43-2.91 Bacteria identified Cx Nom ( U)on 06-29-2024 Appearance (U) Adequate [facility] Bacteria identified Cx Nom (Isol) SEE NOTE Abnormal [facility] Comment on above: Greater than 100,000 CFU/mL of Escherichia coli E.coli INT HUNTER AMOX/CLAVULANATE S <=2 AMP/SULBACTAM S <=2 CEFAZOLIN NR <=4 2 CEFEPIME S <=0.12 CEFTAZIDIME S <=1 CEFTRIAXONE S <=0.25 CIPROFLOXACIN S <=0.06 GENTAMICIN S <=1 IMIPENEM S <=0.25 LEVOFLOXACIN S <=0.12 MEROPENEM S <=0.25 NITROFURANTOIN S <=16 PIP/TAZOBACTAM S <=4 TRIMETHOPRIM/SULFA S <=20 Legend: S = Susceptible I = Intermediate R = Resistant NS = Not susceptible SDD = Susceptible Dose Dependent * = Not Tested NR = Not Reported NN = See Therapy Comments THERAPY COMMENTS Note 1: For infections other than uncomplicated UTI caused by E. coli, K. pneumoniae or P. mirabilis: Cefazolin is resistant if HUNTER > or = 8 mcg/mL. (Distinguishing susceptible versus intermediate for isolates with HUNTER < or = 4 mcg/mL requires additional testing.) Note 2: For uncomplicated UTI caused by E. coli, K. pneumoniae or P. mirabilis: Cefazolin is susceptible if HUNTER <32 mcg/mL and predicts susceptible to the oral agents cefaclor, cefdinir, cefpodoxime, cefprozil, cefuroxime, cephalexin and loracarbef. Internal identifier for Provider [id number] [facility] Specimen source Nom (Unsp spec) URINE [facility] STATUS FINAL [facility] DRUG TOX MONITORIGN 6 W/ CON F,URINEon 06-29-2024 4-Cffjavkyfk-4,5-Dimethy l-3,3-Diphenylpyrrolidin e (EDDP) Ql (U) Negative NINF - 100 ng/mL [facility] Amphetamines Ql (U) Negative NINF - 5 00 ng/mL [facility] Barbiturates Ql (U) Negative NINF - 3 00 ng/mL [facility] Benzodiazepines Ql (U) Negative NINF - 100 ng/mL [facility] Benzoylecgonine Ql (U) Negative NINF - 150 ng/mL [facility] Opiates Ql (U) Negative NINF - 100 ng/mL [facility] oxyCODONE Ql (U) Negative NINF - 100 ng/mL [facility] Phencyclidine Ql (U) Negative NINF - 25 ng/mL [facility] Tetrahydrocannabinol Screen method >20 ng/mL Ql (U) Negative NINF - 20 ng/mL [facility] N. gonorrhoeae DNA JUAN DIEGO+probe Ql (Cervical mucus)on 06-29-2024 C. trachomatis rRNA JUAN DIEGO+probe Ql (Unsp spec) Not detected NOT DETECTED [facility] N. gonorrhoeae rRNA JUAN DIEGO+probe Ql (Unsp spec) Not detected NOT DETECTED [facility] No Panel Informationon 06-29 (ALWAYS MESSAGE) [facility] Comment on above: See Note 1 Note 1 This drug testing is for medical treatment only. Analysis was performed as non-forensic testing and these results should be used only by healthcare providers to render diagnosis or treatment, or to monitor progress of medical conditions. For assistance with interpreting these drug results, please contact a [facility] Toxicology Specialist: [phone] ( ), M-F, 8am-6pm EST. The analytical perfo rmance characteristics of this assay, when used to test SurePath(TM) specimens have been determined by [email or web address]. The modifications have not been cleared or approved by the FDA. This assay has been validated pursuant to the CLIA regulations and is used for clinical purposes. For additional information, please refer to https://education.[facility]/faq/FSW517 (This link is being provided for information/ educational purposes only.) Interpretation and review of laboratory results Abnormal [facility] SPLIT 06/26/2024 FROM [id number] [employer] Organization Information Site ID: QPT Name: [email or web address] [facility] Address: [address] [place] [address], [address] [place] [place] [phone] Director: Bennett Mays MD [facility] URINALYSIS MICROSCOPICon Bacteria LM.HPF (Urine sed) [#/Area] MANY Abnormal NONE SEEN /HPF [facility] Epithelial cells.squamous LM.HPF (Urine sed) [#/Area] 10-20 Abnormal < OR = 5 /HPF [facility] Hyaline casts (Urine sed) [#/Area] 0-5 Abnormal NONE SEEN /LPF [facility] RBC LM.HPF (Urine sed) [#/Area] NONE SEEN < OR = 2 /HPF [facility] WBC LM.HPF (Urine sed) [#/Area] 10-20 Abnormal < OR = 5 /HPF [facility] HCG ( test) Ql (U)o n 06-26-2024 Interpretation and review of laboratory results Abnormal [facility] Preg Test, Ur Positive Negative [facility] Vital Signs Date Time Vital Sign Value Performing Clinician Faci lity 12-30-2024 10:16-0400 Body mass index (BMI) [Ratio] 31.16 kg/m2 Sanjuana Hunto CN Work Phone: [facility] 12-30-2024 10:16-0400 Body weight 88.91 kg Sanjuana Hunto CNM Work Phone: [facility] 12-30-2024 10:16-0400 Diastolic blood pressure 90 mm[Hg] Sanjuana Marileeo CN Work Phone: [facility] Comment on above: 150/90 and 140/94 12-30-2024 10:16-0400 Systolic blood pressure 140 mm[Hg] Sanjuana Marileeo CNM Work Phone: [facility] Comment on above: 150/90 and 140/94 12-16-2024 09:16-0400 Body mass index (BMI) [Ratio] 31.16 kg/m2 Sanjuana Marileeo CN Work Phone: [facility] 12-16-2024 09:16-0400 Body weight 88.91 kg Sanjuana Marileeo CNM Work Phone: [facility] 12-16-2024 09:16-0400 Diastolic blood pressure 80 mm[Hg] Sanjuana Floro CNM Work Phone: [facility] 12-16-2024 09:16-0400 Systolic blood pressure 118 mm[Hg] Sanjuana Marileeo CNM Work Phone: [facility] 11-18-2024 08:51-0400 Body mass index (BMI) [Ratio] 31 kg/m2 Sanjuana Floro CNM Work Phone: [facility] 11-18-2024 08:51-0400 Body weight 88.45 kg Sanjuana Floro CNM Work Phone: [facility] 11-18-2024 08:51-0400 Diastolic blood pressure 80 mm[Hg] Sanjuana Floro CNM Work Phone: [facility] 11-18-2024 08:51-0400 Systolic blood pressure 120 mm[Hg] Sanjuana Floro CNM Work Phone: [facility] 10-21-2024 08:32-0400 Body mass index (BMI) [Ratio] 30.53 kg/m2 Sanjuana Floro CNM Work Phone: [facility] 10-21-2024 08:32-0400 Body weight 87.09 kg Sanjuana Floro CNM Work Phone: [facility] 10-21-2024 08:32-0400 Diastolic blood pressure 78 mm[Hg] Sanjuana Floro CNM Work Phone: [facility] 10-21-2024 08:32-0400 Systolic blood pressure 120 mm[Hg] Sanjuana Floro CNM Work Phone: [facility] 08-26-2024 08:56-0500 Body mass index (BMI) [Ratio] 29.25 kg/m2 Sanjuana Floro CNM Work Phone: [facility] 08-26-2024 08:56-0500 Body weight 83.46 kg Sanjuana Floro CNM Work Phone: [facility] 08-26-2024 08:56-0500 Diastolic blood pressure 70 mm[Hg] Sanjuana Floro CNM Work Phone: [facility] 08-26-2024 08:56-0500 Systolic blood pressure 112 mm[Hg] Sanjuana Floro CNM Work Phone: [facility] 07-21-2024 08:54-0500 Body mass index (BMI) [Ratio] 30.21 kg/m2 Sanjuana Marileeo CNM Work Phone: [facility] 07-21-2024 08:54-0500 Body weight 86.18 kg Sanjuana Marileeo CNM Work Phone: [facility] 07-21-2024 08:54-0500 Diastolic blood pressure 80 mm[Hg] Sanjuana Marileeo CNM Work Phone: [facility] 07-21-2024 08:54-0500 Systolic blood pressure 120 mm[Hg] Sanjuana Marileeo CNM Work Phone: [facility] 06-26-2024 10:20-0500 Body mass index (BMI) [Ratio] 30.53 kg/m2 [facility] 06-26-2024 10:20-0500 Body weight 87.09 kg [facility] Encounters Encounter Date Encounter Type Care Provider Facility Start: 12-31-2024 End: 12-31-2024 Bamboo flowsheet Sanjuana Mariah uHnto CNM Work Phone: [facility] Start: 12-31-2024 End: 12-31-2024 Bamboo flowsheet Sanjuana Mariah Hunto CNM Work Phone: [facility] Start: 12-31-2024 End: 12-31-2024 ambulatory SANJUANA L FLORO Not Available Start: 12-30-2024 End: 12-30-2024 Bamboo flowsheet Sanjuana Mariah Floro CNM Work Phone: [facility] Start: 12-30-2024 End: 12-30-2024 Bamboo flowsheet Sanjuana L Floro CNM Work Phone: [facility] Start: 12-30-2024 End: 12-30-2024 Clinisync Result Encounter Sanjuana Mariah Hunto CNM Work Phone: [facility] Unsolicited Start: 12-30-2024 End: 12-31-2024 ambulatory SANJUANA L FLORO Not Available Start: 12-30-2024 End: 12-30-2024 Subsequent care visit Sanjuana L Floro CNM Work Phone: [facility] Comment on above: Encounter for prenat al care of first , third trimester (HHS-HCC) (Primary Dx); Elevated blood pressure affecting in third trimester, antepartum (HHS-HCC); Acute cystitis without hematuria Start: 12-16-2024 End: 12-16-2024 Bamboo flowsheet Sanjuana L Floro CNM Work Phone: [facility] Start: 12-16-2024 End: 12-16-2024 Bamboo flowsheet Sanjuana L Floro CNM Work Phone: [facility] Start: 12-16-2024 End: 12-16-2024 ambulatory SANJUANA L FLORO Not Available Start: 12-16-2024 End: 12-16-2024 Subsequent care visit Sanjuana L Floro CNM Work Phone: [facility] Comment on above: Encounter for prenat al care of first , third trimester (Primary Dx) Start: 11-26-2024 End: 11-26-2024 ambulatory SANJUANA L FLORO Not Available Start: 11-18-2024 End: 11-18-2024 Bamboo flowsheet Sanjuana L Floro CNM Work Phone: [facility] Start: 11-18-2024 End: 11-18-2024 Bamboo flowsheet Sanjuana L Floro CNM Work Phone: [facility] Start: 11-18-2024 End: 11-18-2024 ambulatory SANJUANA L FLORO Not Available Start: 11-18-2024 End: 11-18-2024 Subsequent care visit Sanjuana L Floro CNM Work Phone: [facility] Comment on above: Screening for diabet es mellitus (DM); Screening for iron deficiency anemia; related condition in second trimester Start: 10-21-2024 End: 10-21-2024 Bamboo flowsheet Sanjuana L Floro CNM Work Phone: [facility] Start: 10-21-2024 End: 10-21-2024 Bamboo flowsheet Sanjuana L Floro CNM Work Phone: [facility] Start: 10-21-2024 End: 10-21-2024 Subsequent care visit Sanjuana L Floro CNM Work Phone: [facility] Comment on above: Encounter for prenat al care of first , second trimester (Primary Dx) Start: 10-21-2024 End: 10-21-2024 ambulatory SANJUANA L FLORO Not Available Start: 09-23-2024 End: 09-23-2024 ambulatory SANJUANA L FLORO Not Available Start: 08-26-2024 End: 08-26-2024 Bamboo flowsheet Sanjuana L Floro CNM Work Phone: [facility] Start: 08-26-2024 End: 08-26-2024 Bamboo flowsheet Sanjuana L Floro CNM Work Phone: [facility] Start: 08-26-2024 End: 08-26-2024 Subsequent care visit Sanjuana L Floro CNM Work Phone: [facility] Comment on above: Nausea/vomiting in p regnancy (Primary Dx); related condition in second trimester Start: 08-26-2024 End: 08-26-2024 ambulatory SANJUANA L FLORO Not Available Start: 07-27-2024 End: 07-27-2024 Telephone encounter Rachelle Gibson MD Work Phone: [facility] Start: 07-21-2024 End: 07-21-2024 Bamboo flowsheet Sanjuana L Floro CNM Work Phone: [facility] Start: 07-21-2024 End: 07-21-2024 Bamboo flowsheet Sanjuana L Floro CNM Work Phone: [facility] Start: 07-21-2024 End: 07-21-2024 Gynecological examination normal Sanjuana NOWAKM Work Phone: [facility] Start: 07-21-2024 End: 07-21-2024 Periodic preventive med est patient 18-39 yrs Sanjuana NOWAKM Work Phone: [facility] Comment on above: Normal gynecologic e xamination (Primary Dx); Encounter for care of first , second trimester; Screening for cervical cancer; Acute cystitis without hematuria Start: 07-21-2024 End: 07-21-2024 ambulatory SANJUANA VARMA Not Available Start: 06-26-2024 End: 06-26-2024 ambulatory [facility] Comment on above: GA: 8w1d Procedures Date Procedure Procedure Detail Performing Clinician Start: 12-30-2024 US OB BPP W NON-STRESS Sanjuana Varma CNM Work Phone: Start: 12-30-2024 ALL CBC WITH AUTO DIFF Sanjuana Varma CNM Work Phone: Start: 07-21-2024 HPV GENOTYPES 16 AND 18, CERVICAL Sanjuana Mariah Hunto CNM Work Phone: Start: 07-21-2024 THINPREP IMAGING PAP AND HPV DNA REFLEX HPV 16,18 Sanjuana Mariah Hunto CNM Work Phone: Start: 06-26-2024 Culture bacterial quanttative colony count urine Sanjuana Hunto CNM Work Phone: Start: 06-26-2024 DRUG TOX MONITORIGN 6 W/ CONF,URINE Sanjuana Hunto CNM Work Phone: Start: 06-26-2024 URINALYSIS MICROSCOPIC Sanjuana Mariah Hunto CNM Work Phone: Start: 06-26-2024 Urine test visual color cmprsn meths Sanjuana Hunto CNM Work Phone: Start: 06-26-2024 Antibody screen rbc each serum technique Sanjuana Hunto CNM Work Phone: Start: 06-26-2024 Hemoglobin glycosyla corina a1c Sanjuana Huntjesus manuel CN Work Phone: Start: 06-26-2024 Iaad ia hepatitis b surface antigen Sanjuana Lemus Kojo CN Work Phone: Start: 06-26-2024 TSH W/REFLEX TO FT4 Zoya fidencio Lemus Kojo CN Work Phone: Plan of Treatment Date Care Activity Detail Author Start: 03-08-2025 Influenza vaccination Influenz a Vaccine (Season Ended) [facility] Start: 01-12-2025 End: 01-12-2025 Patient encounter procedure 01/12/2025 9:15 AM EDT Routine [facility] [address] [place] [id number] Sanjuana Varma, CNM [address] [place] [address] [facility] Start: 12-31-2024 End: 12-31-2024 Patient encounter procedure 12/31/2024 1:15 PM EDT Routine [facility] [address] [facility] [place] [address] Sanjuana Varma, CNM [address] [place] [address] [facility] Start: 12-30-2024 End: 12-30-2024 Patient encounter procedure 12/30/2024 10:15 AM EDT Routine [facility] [address] [facility] [place] [address] Sanjuana Varma, CNM [address] [place] [address] [facility] Start: 11-26-2024 End: 11-26-2024 Professional / ancillary services management 11/26/2024 8:45 AM EDT Ancillary Procedure [facility] [address] [place] [address] [facility] Start: 11-18-2024 End: 11-18-2025 CBC panel - Blood by Automated count CBC Lab Routine Screening for iron deficiency anemia Expected: 11/18/2024 (Approximate), Expires: 11/18/2025 [facility] Comment on above: Expected: 11/18/2024 (Approximate), Expires: 11/18/2025 Start: 11-18-2024 End: 11-18-2025 GLUCOSE, GESTATIONAL SCREEN (50G)-135 CUTOFF GLUCOSE, GESTATIONAL SCREEN (50G)-135 CUTOFF Lab Routine Screening for diabetes mellitus (DM) Expected: 11/18/2024 (Approximate), Expires: 11/18/2025 [facility] Work Phone: Comment on above: Expected: 11/18/2024 (Approximate), Expires: 11/18/2025 Start: 11-18-2024 End: 11-18-2025 US for US OB follow up transabdominal approach Imaging Routine related condition in second trimester Expected: 11/18/2024, Expires: 11/18/2025 [facility] Comment on above: Expected: 11/18/2024 , Expires: 11/18/2025 Start: 11-18-2024 End: 11-18-2024 Patient encounter procedure 11/18/2024 8:45 AM EDT Routine [facility] [address] [place] [id number] Sanjuana Varma, CNM [address] [place] [address] [facility] Start: 10-21-2024 End: 10-21-2024 Patient encounter procedure 10/21/2024 8:30 AM EDT Routine [facility] [address] [place] [id number] Sanjuana Varma, CNM [address] [place] [address] Arrived [facility] Comment on above: Arrived Start: 09-23-2024 End: 09-23-2024 Professional / ancillary services management 09/23/2024 9:00 AM EDT Ancillary Procedure [facility] [address] [id number] [facility] Start: 09-23-2024 End: 09-23-2024 Patient encounter procedure 09/23/2024 8:30 AM EDT Routine [facility] [address] [place] [address] Sanjuana Varma, SHE [address] [place], [place] [id number] [facility] Start: 08-26-2024 End: 08-26-2025 US for US OB 14+ weeks anatomy scan Imaging Routine related condition in second trimester Expected: 08/26/2024, Expires: 08/26/2025 [facility] Work Phone: Comment on above: Expected: 08/26/2024 , Expires: 08/26/2025 Start: 08-26-2024 End: 08-26-2024 Patient encounter procedure [facility] Comment on above: Arrived Start: 07-21-2024 End: 07-21-2024 Patient encounter procedure 07/21/2024 8:30 AM EST Routine [facility] [address] [place] [address] Sanjuana Varma, [address] [id number] Arrived [facility] Comment on above: Arrived Start: 03-08-2024 Influenza vaccination Influenza Vacc ine (#1) [facility] Payers Date Payer Category Payer Private Health Insurance [employer] [id number] 2024 Unknown [id number] 2000 Unknown [id number] .[id number] 2000 Unknown [id number] .2.1258 2000 Unknown [id number] [id number] .2.1258 2000 Unknown [id number] [id number] .2.1258 2000 Unknown [id number] [id number] .2.1258 2000 Unknown [id number] .2.1258 2000 Unknown [id number] [id number] .2.1258 2000 Unknown [id number] [id number] .2.1258 2000 Unknown [id number] [id number] .2.1258 2000 Unknown [id number] [id number] .2.1258 2000 Unknown [id number] .2.9 Social History Date Type Detail Facility Start: 06-26-2024 Tobacco smoking stat [facility] Never smoked tobacco [facility] Start: 06-26-2024 Tobacco use and exposure Smoke less tobacco non-user [facility] Start: 06-26-2024 Alcoholic beverage intake Ex-drinker (finding) [facility] Start: 06-26-2024 History of Social function [facility] Start: 06-26-2024 Tobacco use panel [facility] Start: 05-14-2024 [facility] Start: 2000 Sex assigned at Not on file N [facility] Clinical Notes 06-26-2024 to 12-30-2024 Sanjuana Varma CNM - 12/30/2024 10:15 AM EDRenetta Varma CNM - 12/16/2024 9:00 AM Tony Varma CNM - 11/18/2024 8:45 AM EDRenetta Varma CNM - 10/21/2024 8:30 AM EDT Note Date & Type Note Facility 12-30-2024 History of Presen t illness Narrative Subjective No chief complaint on file. Franck Griffin is a 24 y.o. at 34w6d with a working estimated date of delivery of 02/04/2025, by Last Menstrual Period who presents for a routine visit. She denies vaginal bleeding, leakage of fluid, decreased movements, or contractions. OB History Para Term AB Living 1 SAB IAB Ectopic Multiple Live Births # Outcome Date GA Lbr Ra/2nd Weight Sex Type Anes PTL Lv 1 Current Her is complicated by: elevated blood pressure today Objective Physical Exam Weight: 196 lb Expected Total Weight Gain: 11 lb-19 lb Pregravid BMI: 30.53 BP: 140/90 Urine protein-15 Urine glucose-negative Assessment/Plan Continue vitamin. Labs reviewed. GBS taken. Expected mode of delivery vaginal Follow up in 1 week for a routine visit. documented in this encounter [facility] 12-16-2024 History of Presen t illness Narrative Subjective No chief complaint on file. Franck Griffin is a 24 y.o. at 32w6d with [...] a routine visit. documented in this encounter [facility] 11-18-2024 History of Presen t illness Narrative Subjective No chief complaint on file. Franck Griffin is a 24 y.o. at 28w6d with a working estimated date of delivery of 02/04/2025, by Last Menstrual Period who presents for a routine visit. She denies vaginal bleeding, leakage of fluid, decreased movements, or contractions. OB History Para Term AB Living 1 SAB IAB Ectopic Multiple Live Births # Outcome Date GA Lbr Ra/2nd Weight Sex Type Anes PTL Lv 1 Current Her is complicated by: No problems The following portions of the chart were reviewed this encounter and updated as appropriate: Objective Physical Exam Weight: 195 lb Expected Total Weight Gain: 11 lb-19 lb Pregravid BMI: 30.53 BP: 120/80 Urine protein-negative Urine glucose-negative Labs: reviewed Imaging Assessment/Plan Diagnoses and all orders for this visit: Screening for diabetes mellitus (DM) - GLUCOSE, GESTATIONAL SCREEN (50G)-135 CUTOFF; Future Screening for iron deficiency anemia - CBC; Future related condition in second trimester - US OB follow up transabdominal approach; Future Subjective No chief complaint on file. Franck Griffin is a 24 y.o. at 28w6d with a working estimated date of delivery of 02/04/2025, by Last Menstrual Period who presents for a routine visit. She denies vaginal bleeding, leakage of fluid, decreased movements, or contractions. OB History Para Term AB Living 1 SAB IAB Ectopic Multiple Live Births # Outcome Date GA Lbr Ra/2nd Weight Sex Type Anes PTL Lv 1 Current Her is complicated by: Objective Physical Exam Weight: 195 lb Expected Total Weight Gain: 11 lb-19 lb Pregravid BMI: 30.53 BP: 120/80 Urine protein negative Urine glucose negative Assessment/Plan Diagnoses and all orders for this visit: Screening for diabetes mellitus (DM) - GLUCOSE, GESTATIONAL SCREEN (50G)-135 CUTOFF; Future Screening for iron deficiency anemia - CBC; Future related condition in second trimester - US OB follow up transabdominal approach; Future Continue vitamin. Labs reviewed. GBS taken. Expected mode of delivery Follow up in 1 week for a routine visit. Continue vitamin. Labs reviewed. Rhogam 11/16/24 GTT 11/16/24 Follow up in 2 weeks for growth scan and 4 weeks for a routine visit. documented in this encounter [facility] 10-21-2024 History of Presen t illness Narrative Subjective No chief complaint on file. Franck Griffin is a 24 y.o. at 24w6d with a working estimated date of delivery of 02/04/2025, by Last Menstrual Period who presents for a routine visit. She denies vaginal bleeding, leakage of fluid, decreased movements, or contractions. OB History Para Term AB Living 1 SAB IAB Ectopic Multiple Live Births # Outcome Date GA Lbr Ra/2nd Weight Sex Type Anes PTL Lv 1 Current Her is complicated by: pt states that she had intercourse last night and had some bleeding and that it was kind of a lot and passed some clots. She states that she is no longer bleeding and feels the baby move okay. The following portions of the chart were reviewed this encounter and updated as appropriate: Objective Physical Exam weight: 192 lb Expected Total Weight Gain: 11 lb-19 lb Pregravid BMI: 30.53 BP: 120/78 Urine protein-negative Urine glucose-negative Labs: reviewed Imaging Assessment/Plan Diagnoses and all orders for this visit: Encounter for care of first , second trimester Continue vitamin. Labs reviewed Rhogam needed at 28 weeks GTT at 28 weeks Anticipate Patient had some bleeding last night after intercourse and stated it was a little heavy at first. Passed a couple small clots, and then it stopped. No more bleeding, denies pain, contractions, rupture of membranes and does feel a lot of movement. Follow up in 2 weeks for a routine visit. documented in this encounter [facility] 08-26-2024 History of Presen t illness Narrative Subjective No chief complaint on file. Franck Griffin is a 24 y.o. at 16w6d with a working estimated date of delivery of 02/04/2025, by Last Menstrual Period who presents for a routine visit. She denies vaginal bleeding, leakage of fluid, decreased movements, or contractions. OB History Para Term AB Living 1 SAB IAB Ectopic Multiple Live Births # Outcome Date GA Lbr Ra/2nd Weight Sex Type Anes PTL Lv 1 Current Her is complicated by: nausea and vomiting The following portions of the chart were reviewed this encounter and updated as appropriate: Objective Physical Exam weight: 184 lb Expected Total Weight Gain: 11 lb-19 lb Pregravid BMI: 30.53 BP: 112/70 Urine protein-negative Urine glucose-negative Labs: reviewed Imaging Assessment/Plan Diagnoses and all orders for this visit: Nausea/vomiting in - ondansetron ODT (Zofran-ODT) 8 MG disintegrating tablet; Take 1 tablet (8 mg) by mouth every 8 (eight) hours if needed for nausea or vomiting related condition in second trimester - US OB 14+ weeks anatomy scan; Future Continue vitamin. Labs reviewed. Rhogam A- negative GTT at 28 weeks Follow up in 2 weeks for a routine visit. documented in this encounter [facility] 07-27-2024 Telephone encount er Note Franck has a hard time swallowing pills - the antibiotic sent in for her last week are huge , so she is asking for a liquid form to be called in ,please. Faye Thomas- [phone] [facility] 07-27-2024 Miscellaneous Notes Formattin g of this note might be different from the original. Franck has a hard time swallowing pills - the antibiotic sent in for her last week are huge , so she is asking for a liquid form to be called in ,please. Faye Thomas- [phone] documented in this encounter [facility] 07-21-2024 History of Presen t illness Narrative Subjective No chief complaint on file. Franck Griffin is a 24 y.o. at 11w5d with a working estimated date of delivery of 02/04/2025, by Last Menstrual Period who presents for a routine visit. She denies vaginal bleeding, leakage of fluid, decreased movements, and contractions. OB History Para Term AB Living 1 SAB IAB Ectopic Multiple Live Births # Outcome Date GA Lbr Ra/2nd Weight Sex Type Anes PTL Lv 1 Current Her is complicated by: has UTI- e-coli, and vomiting every day x1 The following portions of the chart were reviewed this encounter and updated as appropriate: Objective Physical Exam , Pregravid BMI: 30.53 Expected Total Weight Gain: 11 lb-19 lb Labs YEARLY HPI: This is a new patient. No chief complaint on file. Here for annual exam. OB History Para Term AB Living 1 SAB IAB Ectopic Multiple Live Births # Outcome Date GA Lbr Ra/2nd Weight Sex Type Anes PTL Lv 1 Current Last pap: first pap Other: History: No past medical history on file. No past surgical history on file. No family history on file. Allergies: Allergies Allergen Reactions Minocycline Rash Medications: No current outpatient medications on file prior to visit. No current facility-administered medications on file prior to visit. ROS: Review of Systems Eyes: Visual disturbance: new. All other systems reviewed and are negative. Vitals: 07/21/24 0854 BP: 120/80 Physical exam: Physical Exam Vitals reviewed. Constitutional: Appearance: Normal appearance. HENT: Head: Normocephalic. Right Ear: Tympanic membrane normal. Left Ear: Tympanic membrane normal. Mouth/Throat: Mouth: Mucous membranes are moist. Eyes: Pupils: Pupils are equal, round, and reactive to light. Cardiovascular: Rate and Rhythm: Normal rate and regular rhythm. Pulses: Normal pulses. Heart sounds: Normal heart sounds. Pulmonary: Effort: Pulmonary effort is normal. Breath sounds: Normal breath sounds. Chest: Breasts: Right: Normal. Left: Normal. Abdominal: General: Abdomen is flat. Bowel sounds are normal. Palpations: Abdomen is soft. Tenderness: There is no abdominal tenderness. Genitourinary: General: Normal vulva. Exam position: Lithotomy position. Vagina: Normal. No tenderness. Cervix: Normal. No cervical motion tenderness. Uterus: Normal. Adnexa: Right adnexa normal and left adnexa normal. Musculoskeletal: General: Normal range of motion. Cervical back: Normal range of motion and neck supple. Skin: General: Skin is warm and dry. Neurological: General: No focal deficit present. Mental Status: She is alert and oriented to person, place, and time. Psychiatric: Mood and Affect: Mood normal. Assessment and Plan: 1. Annual exam 2. SBE discussed: Yes-,deferred today due to 3. Diet and exercise discussed: No 4. Wt control discussed: No 5. Safe sex discussed: No Diagnoses and all orders for this visit: Normal gynecologic examination (Primary) Encounter for care of first , second trimester Screening for cervical cancer - THINPREP IMAGING PAP AND HPV DNA REFLEX HPV 16,18; Future - THINPREP IMAGING PAP AND HPV DNA REFLEX HPV 16,18 Acute cystitis without hematuria - amoxicillin-clavulanate (Augmentin) 500-125 MG tablet; Take 1 tablet (500 mg) by mouth in the morning and 1 tablet (500 mg) before bedtime. Do all this for 7 days. No follow-ups on file. There are no Patient Instructions on file for this visit. Sanjuana Varma CNM, 07/21/2024 11:23 AM Imaging Assessment/Plan Diagnoses and all orders for this visit: Normal gynecologic examination Encounter for care of first , second trimester Screening for cervical cancer - THINPREP IMAGING PAP AND HPV DNA REFLEX HPV 16,18; Future Acute cystitis without hematuria - amoxicillin-clavulanate (Augmentin) 500-125 MG tablet; Take 1 tablet (500 mg) by mouth in the morning and 1 tablet (500 mg) before bedtime. Do all this for 7 days. Urine protein Urine glucose Continue vitamin. Labs reviewed. Order placed for anatomy scan at 20 weeks. Follow up in 4 weeks for a routine visit. documented in this encounter [facility] 06-26-2024 History of Presen t illness Narrative Subjective Franck Griffin is a 24 y.o. at 8w1d with a working estimated date of delivery of 02/04/2025, by Last Menstrual Period who presents for an initial visit. This is planned. Patient Care Team: Rachelle Gibson MD as PCP - General (Family Medicine) OB History Para Term AB Living 1 SAB IAB Ectopic Multiple Live Births # Outcome Date GA Lbr Ra/2nd Weight Sex Type Anes PTL Lv 1 Current Her is complicated by: Patient referred by Gynecology History Last Pap- never had one The following portions of the chart were reviewed this encounter and updated as appropriate: @RULESMARTLINK([id number],TOBYESPROV)@@ RULESMARTLINK([id number],ALGYESPROV)@@R KRISTEN ARTLINK([id number],MEDYESPROV)@@RULESMA RTLINK([id number],PROBYESPROV)@@RULESROSE RTLIN K([id number],MHYESPROV)@@RULESMARTLINK( [id number],SHYESPROV)@@RULESMARTLINK([id number], FHYESPROV)@@RULESMARTLINK([id number],SO HYESPROV)@ Review of Systems Objective Physical Exam Expected Total Weight Gain: Could not be calculated Pregravid BMI: Could not be calculated Urine protein Urine glucose Labs Assessment/Plan Blue education folder given. Patient educated on safe medication list. Genetic testing information given. Discussed the do's and don'ts in the blue folder. We discussed labs and what we draw and what we are testing for. Patient is also informed that we do a urine drug test. Patient also given office phone number and [facility] number to call in case of an emergency or after hours needs. PVU and all questions answered. We did discuss place of delivery. Patient should plan to go to [facility] for all services unless an emergency and they need to go to the closest ER. We can make other arrangements possibly if patient would like to deliver at another facility but I did explain I am now at [facility] 100% of the time and would like to do all deliveries there. documented in this encounter [facility] Evaluation note Diagnosis examination or test, positive result Amenorrhea Absence of menstruation [facility]* Diagnosis Nausea/vomiting in - Primary Unspecified vomiting of , unspecified as to episode of care related condition in second trimester [facility]* Diagnosis Encounter for care of first , second trimester- Primary [facility]* Diagnosis Normal gynecologic examination- Primary Encounter for care of first , second trimester Screening for cervical cancer Screening for malignant neoplasm of the cervix Acute cystitis without hematuria [facility]* Diagnosis Screening for diabetes mellitus (DM) Screening for diabetes mellitus Screening for iron deficiency anemia related condition in second trimester documented [facility]* Diagnosis Encounter for care of first , third trimester- Primary [facility]* Diagnosis Encounter for care of first , third trimester (HHS-HCC)- Primary Elevated blood pressure affecting in third trimester, antepartum (HHS-HCC) Acute cystitis without hematuria documented in this encounter [facility] Summary Purpose Family History No Family History Records Found Advance Directives No Advanced Directives Records Found Additional Source Comments Care Teams (unrecognized sec tion and content) Fire Suppression Captain Relationship Specialty Start Date End Date Rachelle Gibson MD [address] [place] [address] PCP - General Family Medicine 11/13/22 Fire Suppression Captain Relationship Specialty Start Date End Date Rachelle Gibson MD [address] [place] [address] PCP - General Family Medicine 11/13/22 Fire Suppression Captain Relationship Specialty Start Date End Date Rachelle Gibson MD [address] [place] [address] PCP - General Family Medicine 11/13/22 Fire Suppression Captain Relationship Specialty Start Date End Date Rachelle Gibson MD [address] [place] [address] PCP - General Family Medicine 11/13/22 Fire Suppression Captain Relationship Specialty Start Date End Date Rachelle Gibson MD [address] [place] [address] PCP - General Family Medicine 11/13/22 Fire Suppression Captain Relationship Specialty Start Date End Date Rachelle Gibson MD [address] [place] [address] PCP - General Family Medicine 11/13/22 Fire Suppression Captain Relationship Specialty Start Date End Date Rachelle Gibson MD [address] [place] [address] PCP - General Family Medicine 11/13/22 Fire Suppression Captain Relationship Specialty Start Date End Date Rachelle Gibson MD [address] [place] [address] PCP - General Family Medicine 11/13/22 INFORMATION SOURCE (unrecogn ized section and content) DATE CREATED AUTHOR 01/02/2025 [facility] FOR RECORDS PERTAINING TO PATIENTS WHO ARE OR HAVE BEEN ENROLLED IN A CHEMICAL DEPENDENCY/SUBSTANCEABUSE PROGRAM, SOME INFORMATION MAY BE OMITTED. This clinical summary was aggregated from multiple sources. Caution should be exercised in using it in the provision of clinical care. This summary normalizes information from multiple sources, and as a consequence, information in this document may materially change the coding, format and clinical context of patient data. In addition, data may be omitted in some cases. CLINICAL DECISIONS SHOULD BE BASED ON THE PRIMARY CLINICAL RECORDS. [facility]. provides no warranty or guarantee of the accuracy or completeness of information in this document.
--- OUTSIDE RECORDS SUMMARY | 2025-01-03 13:26 | XMS_ITS | CCD ---
Author Organization [facility] Care Team Providers Care Security Orderly Name Role Phone Arthur RAMIREZ, Rachelle Kapoor Primary Care Provider FLORO, SANJUANA L Attending Unavailable FLORO, SANJUANA [...] blood pressure affecting in third trimester, antepartum ([facility]) , Acute cystitis without hematuria Take 1 [...] AUTO DIFFon BASOPHILS ABSOLUTE AUTO 0 N [facility] Basophils/100 WBC (Bld) 0.3 % 0.2 - 2.0 % [facility] Eosinophils/100 WBC (Bld) 1.4 % 0.9 - 7.0 % [facility] Erythrocyte distribution width (RBC) [Ratio] 12.3 % 11.0 - 15.0 % [facility] Hematocrit (Bld) [Volume fraction] 33.7 % Low 36.0 - 48.0 % [facility] Hemoglobin (Bld) [Mass/Vol] 11.5 g/dL Low 12.0 - 16.0 g/dL [facility] IMMATURE GRANULOCYTES ABS AUTO 0.12 High [facility] Immature granulocytes/100 WBC (Bld) 0.9 % High 0.0 - 0.5 % [facility] Interpretation and review of laboratory results Abnormal [facility] LYMPHOCYTES ABSOLUTE AUTO 1.5 [facility] Lymphocytes/100 WBC (Bld) 11.6 % Low 20.5 - 60.0 % [facility] MCH (RBC) [Entitic mass] 29.2 pg 26. 7 - 34.0 pg [facility] MCHC (RBC) [Mass/Vol] 34.1 g/dL 29.9 - 35.2 g/dL [facility] MCV (RBC) [Entitic vol] 85.5 fL 81.0 - 99.0 fL [facility] MONOCYTES ABSOLUTE AUTO 0.9 High N [facility] Monocytes/100 WBC (Bld) 7 % 1.7 - 12.0 % [facility] NEUTROPHILS ABSOLUTE AUTO 10.4 High [facility] Neutrophils/100 WBC (Bld) 78.8 % High 43.0 - 75.0 % [facility] Platelet mean volume (Bld) [Entitic vol] 10.2 fL 9.5 - 13.5 fL [facility] TBH EO # 0.2 [facility] TBH PLT 312 [facility] TB RBC 3.94 Low [facility] TB WBC 13.2 High [facility] US OB BPP W NON-STRESS on 12-30-[address] [address] Ultrasound Report Signed Patient: FRANCK GRIFFIN MR#: [id number] : 2000 Acct:[id number] Age/Sex: 24 / F ADM Date: Loc: [facility] 250-[address]: SANJUANA VARMA APRN, CNM Ordering Physician: SANJUANA VARMA APRN, CNM Date of Service: 12/30/24 Procedure(s): US OB BPP w non-stress Accession Number(s): [id number] cc: SANJUANA VARMA APRN, CNM; Physician,Non-Staff M[address] [place] [address] Patient Name: FRANCK GRIFFIN MRN: [facility]:[id number] date: 2000 Sex: F Assigned Patient Location: [facility] Current Patient Location: [facility] Accession/Order Number: [id number] Exam Date: 12/30/2024 12:57 Report Date: 12/30/2024 [...] Wadsworth M.D. 12/30/2024 12:58 PM Dictation Location: [place] [address] Electronically authenticated by: [id number] Y Date: 12/30/2024 12:58 Dictated By: Denver Wadsworth M.D. Signed By: 12/30/24 1301 DD/ 1258 TD/TT: Billiard Table Repairer: [facility] Radiology, Radiologist, MD - 12/30/[address] [address] Ultrasound Report Signed Patient: FRANCK GRIFFIN MR#: [id number] : 2000 Acct:[id number] Age/Sex: 24 / F ADM Date: Loc: [facility] 250-[address]: SANJUANA VARMA APRN, CNM Ordering Physician: SANJUANA VARMA APRN, CNM Date of Service: 12/30/24 Procedure(s): US OB BPP w non-stress Accession Number(s): [id number] cc: SANJUANA VARMA APRN, CNM; Physician,Non-Staff M[facility] The [place] [id number] Patient Name: FRANCK GRIFFIN MRN: [facility]:[id number] date: 2000 Sex: F Assigned Patient Location: [facility] Current Patient Location: [facility] Accession/Order Number: [id number] Exam Date: 12/30/2024 12:57 Report Date: 12/30/2024 [...] Wadsworth M.D. 12/30/2024 12:58 PM Dictation Location: [place] [address] Electronically authenticated by: [id number] Y Date: 12/30/2024 12:58 Dictated By: Denver Wadsworth M.D. Signed By: 12/30/24 1301 DD/ 1258 TD/TT: Billiard Table Repairer: [facility] Radiology Study observation (narrative) [facility] US OB BPP W NON-STRESS Ordered By: Radiologist Radiology on 12-30-2024 [facility] Work Phone: US OB FOLLOW UP TRANSABDOMIN [...] report is generated using voice recognition reporting ([place]). On occasion PowerScribe erroneously drops words from [...] report is generated using voice recognition reporting ([place]). On occasion AIScribe erroneously drops words from the report or replaces the spoken word with similar sounding words. Please call with any questions/concerns regarding this report.* Dictated and transcribed 09/23/24/dpd This report has been electronically signed and approved by the interpreting radiologist. Normal Not Available Laboratory - Cytologyon 07-08 Firer Helper Cyto stain Nom (Cvx/Vag) [ID] [facility] Comment on above: ASD, CT(ASCP) screen ing location: [place] [address]. JEH, CT(ASCP) CT scr eening location: [place] [address]. Cytology study comment Cyto stain Matt (Cvx/Vag) [Interp] [facility] Comment on above: This Pap test has be en evaluated with computer assisted technology. Microorganism identified Cyto stain Nom (Cvx/Vag) [facility] Comment on above: Fungal organisms mor phologically consistent with Nora spp. Microscopic observation Cyto stain Nom (Cvx) [facility] Comment on above: Cytology Results: Ne gative for intraepithelial lesion or malignancy. Specimen source Cyto stain Nom (Cvx/Vag) [facility] Comment on above: Cervix Statement of adequacy Cyto stain (Cvx/Vag) [Interp] [facility] Comment on above: Satisfactory for mandie luation. Endocervical/transformation zone component absent. Laboratory - Microbiology an d Antimicrobial susceptibilityon 07-25-2024 HPV 16 DNA Probe+sig amp Ql (Cvx) Not detected Not Detected [facility] HPV 16+18+31+33+35+39+45+51+ 52+56+58+59+66+68 DNA JUAN DIEGO+probe Ql (Cvx) Detected Abnormal NOT DETECTED [facility] Comment on above: Detected One or more High Risk HPV types (16,18,31,33, 35,39,45,51,52,56,58,59,66,68) was detected. Methodology: Real Time PCR HPV 18 DNA Probe+sig amp Ql (Cvx) Not detected Not Detected [facility] Comment on above: Methodology: Real Ti me PCR No Panel Informationon 07-25 (ALWAYS MESSAGE) [facility] Comment on above: EXPLANATORY NOTE: The Pap [...] Interpretation and review of laboratory results Abnormal [facility] Last menstrual period start date [facility] Comment on above: NONE GIVEN Performing Organization Information Site ID: AMD Name: [employer] [facility] Address: [address] [place], [place] Director: Hiren Ash M.D.,PhD Site ID: [id number] Name: [employer] [facility] Address: [address] [place] [address], [address] [place] [phone] Director: Bennett Mays MD [facility] Performing Organization Information Site ID: AMD Name: [employer] [facility] Address: [id number] [place] [address] [place] Director: Hiren Ash M.D.,PhD [facility] ABO/Rhon 06-30-2024 ABO group Nom (Bld) A [facility] Rh Nom (Bld) Negative [facility] Comment on above: For additional information, please refer to http://education.Infotrieve/faq/AHO695 (This link is being provided for informational/ educational purposes only.) Antibody screenon 06-30-2024 Blood group antibody screen Ql Detected [facility] Comment on above: Reference range No antibodies detected This assay is a screening test for the detection of red blood cell antibodies. The test is not to be used for pretransfusion screening or for the medical management of an alloimmunized . CBC panel Auto (Bld)on 06-30 Erythrocyte distribution width (RBC) [Ratio] 12.2 % 11.0 - 15.0 % [facility] Hematocrit (Bld) [Volume fraction] 42.3 % 35.0 - 45.0 % [facility] Hemoglobin (Bld) [Mass/Vol] 14.3 g/dL 11.7 - 15.5 g/dL [facility] MCH (RBC) [Entitic mass] 30 pg 27. 0 - 33.0 pg [facility] MCHC (RBC) [Mass/Vol] 33.8 g/dL 32.0 - 36.0 g/dL [facility] Comment on above: For adults, a slight decrease in the calculated MCHC value (in the range of 30 to 32 g/dL) is most likely not clinically significant; however, it should be interpreted with caution in correlation with other red cell parameters and the patient's clinical condition. MCV (RBC) [Entitic vol] 88.7 fL 80.0 - 100.0 fL [facility] Platelet mean volume (Bld) [Entitic vol] 10.2 fL 7.5 - 12.5 fL [facility] Platelets (Bld) [#/Vol] 365 10*3/uL [facility] RBC (Bld) [#/Vol] 4.77 10*6/uL [facility] WBC (Bld) [#/Vol] 10.2 10*3/uL [facility] HIV-1 and HIV-2 antibodieson 06-30-2024 HIV 1+2 Ab+HIV1 p24 Ag IA Ql Non-Reactive NON-REACTIVE [facility] Comment on above: HIV-1 antigen and HI [...] purpose. For additional information please refer to http://education.LendingStar.Polyera/faq/NQM990 (This link is being provided for informational/ educational purposes only.) The performance of this assay has not been clinically validated in patients less than 2 years old. Hemoglobin A1con 06-30-2024 HbA1c (Bld) [Mass fraction] 5.3 % [facility] Comment on above: For the purpose of s creening for the presence of diabetes: <5.7% Consistent with the absence of diabetes 5.7-6.4% Consistent with increased risk for diabetes (prediabetes) > or =6.5% Consistent with diabetes This assay result is consistent with a decreased risk of diabetes. Currently, no consensus exists regarding use of hemoglobin A1c for diagnosis of diabetes in children. According to [place] Diabetes Association (ADA) guidelines, hemoglobin A1c <7.0% represents optimal control in non- diabetic patients. Different metrics may apply to specific patient populations. Standards of Medical Care in Diabetes(ADA). Hepatitis B surface antigeno n 06-30-2024 HBV surface Ag IA Ql Non-Reactive NON-REACTIVE [facility] Comment on above: For additional information, please refer to http://education.[employer]/faq/OFE286 (This link is being provided for informational/ educational purposes only.) Hepatitis C antibodyon 06-30 HCV Ab IA Ql Non-Reactive NON-REACTIVE [facility] Comment on above: HCV antibody was non-reactive. There is no laboratory evidence of HCV infection. In most cases, no further action is required. However, if recent HCV exposure is suspected, a test for HCV RNA (test code 21003) is suggested. For additional information please refer to http://education.[employer]/faq/EKE66b4 (This link is being provided for informational/ educational purposes only.) No Panel Informationon 06-30 MULTIPLE COLLECTION TIMES FOR SAME TEST TYPE. [employer] Organization Information Site ID: QPT Name: [employer] [facility] Address: [address] [place] [address], [address] [place] [phone] Director: Bennett Mays MD [facility] RPRon 06-30-2024 Reagin Ab RPR Ql (S) Non-Reactive NON-REACTIVE [facility] Rubella antibody, IgGon 06-08 Rubella virus IgG Qn (S) 2.24 [IU]/mL Index [facility] Comment on above: Index Interpretation ----- <0.90 Not consistent with immunity 0.90-0.99 Equivocal > or = 1.00 Consistent with immunity The presence of rubella IgG antibody suggests immunization or past or current infection with rubella virus. TSH W/REFLEX TO FT4on 2023 TSH Qn 1.07 m[IU]/L mIU/L [facility] Comment on above: Reference Range > or [...] cephalexin and loracarbef. Internal identifier for Provider [id number] [facility] Specimen source Nom (Unsp spec) URINE [facility] STATUS FINAL [facility] DRUG TOX MONITORIGN 6 W/ CON F,URINEon 06-29-2024 3-Huyaadgwqm-7,5-Dimethy l-3,3-Diphenylpyrrolidin e (EDDP) Ql (U) Negative NINF - 100 ng/mL [facility] Amphetamines Ql (U) Negative NINF - 5 00 ng/mL [facility] Barbiturates Ql (U) Negative NINF - 3 00 ng/mL [facility] Benzodiazepines Ql (U) Negative NINF - 100 ng/mL [facility] Benzoylecgonine Ql (U) Negative NINF - 150 ng/mL [facility] Opiates Ql (U) Negative NINF - 100 ng/mL [facility] oxyCODONE Ql (U) Negative NINF - 100 ng/mL [facility] Phencyclidine Ql (U) Negative NINF - 25 ng/mL [facility] Tetrahydrocannabinol Screen method >20 ng/mL Ql (U) Negative NINF - 20 ng/mL [facility] N. gonorrhoeae DNA JUAN DIEGO+probe Ql (Cervical mucus)on 06-29-2024 C. trachomatis rRNA JUAN DIEGO+probe Ql (Unsp spec) Not detected NOT DETECTED [facility] N. gonorrhoeae rRNA JUAN DIEGO+probe Ql (Unsp spec) Not detected NOT DETECTED [facility] No Panel Informationon 06-29 (ALWAYS MESSAGE) [facility] Comment on above: See Note 1 Note 1 This drug testing is for medical treatment only. Analysis was performed as non-forensic testing and these results should be used only by healthcare providers to render diagnosis or treatment, or to monitor progress of medical conditions. For assistance with interpreting these drug results, please contact a [employer] Toxicology Specialist: [phone] ( ), M-F, 8am-6pm EST. The analytical perfo rmance characteristics of this assay, when used to test SurePath(TM) specimens have been determined by [employer]. The modifications have not been cleared or approved by the FDA. This assay has been validated pursuant to the CLIA regulations and is used for clinical purposes. For additional information, please refer to https://education.[employer]/faq/SDA627 (This link is being provided for information/ educational purposes only.) Interpretation and review of laboratory results Abnormal [facility] SPLIT 06/26/2024 FROM [id number] [employer] Organization Information Site ID: QPT Name: [employer] [facility] Address: [address] [place] [address], [address] [place] [phone] Director: Bennett Mays MD [facility] URINALYSIS MICROSCOPICon Bacteria LM.HPF (Urine sed) [#/Area] MANY Abnormal NONE SEEN /HPF [facility] Epithelial cells.squamous LM.HPF (Urine sed) [#/Area] 10-20 Abnormal < OR = 5 /HPF [facility] Hyaline casts (Urine sed) [#/Area] 0-5 Abnormal NONE SEEN /LPF [facility] RBC LM.HPF (Urine sed) [#/Area] NONE SEEN < OR = 2 /HPF [facility] WBC LM.HPF (Urine sed) [#/Area] 10-20 Abnormal < OR = 5 /HPF [facility] HCG ( test) Ql (U)o n 06-26-2024 Interpretation and review of laboratory results Abnormal [facility] Preg Test, Ur Positive Negative [facility] Vital Signs Date Time Vital Sign Value Performing Clinician Faci lity 12-30-2024 10:16-0400 Body mass index (BMI) [Ratio] 31.16 kg/m2 Sanjuana Hunto CN Work Phone: [facility] 12-30-2024 10:16-0400 Body weight 88.91 kg Sanjuana Hunto CNM Work Phone: [facility] 12-30-2024 10:16-0400 Diastolic blood pressure 90 mm[Hg] Sanjuana Marileeo CN Work Phone: [facility] Comment on above: 150/90 and 140/94 12-30-2024 10:16-0400 Systolic blood pressure 140 mm[Hg] Sanjuana Marileeo CNM Work Phone: [facility] Comment on above: 150/90 and 140/94 12-16-2024 09:16-0400 Body mass index (BMI) [Ratio] 31.16 kg/m2 Sanjuana Marileeo CN Work Phone: [facility] 12-16-2024 09:16-0400 Body weight 88.91 kg Sanjuana Marileeo CNM Work Phone: [facility] 12-16-2024 09:16-0400 Diastolic blood pressure 80 mm[Hg] Sanjuana Floro CNM Work Phone: [facility] 12-16-2024 09:16-0400 Systolic blood pressure 118 mm[Hg] Sanjuana Marileeo CNM Work Phone: [facility] 11-18-2024 08:51-0400 Body mass index (BMI) [Ratio] 31 kg/m2 Sanjuana Floro CNM Work Phone: [facility] 11-18-2024 08:51-0400 Body weight 88.45 kg Sanjuana Floro CNM Work Phone: [facility] 11-18-2024 08:51-0400 Diastolic blood pressure 80 mm[Hg] Sanjuana Floro CNM Work Phone: [facility] 11-18-2024 08:51-0400 Systolic blood pressure 120 mm[Hg] Sanjuana Floro CNM Work Phone: [facility] 10-21-2024 08:32-0400 Body mass index (BMI) [Ratio] 30.53 kg/m2 Sanjuana Floro CNM Work Phone: [facility] 10-21-2024 08:32-0400 Body weight 87.09 kg Sanjuana Floro CNM Work Phone: [facility] 10-21-2024 08:32-0400 Diastolic blood pressure 78 mm[Hg] Sanjuana Floro CNM Work Phone: [facility] 10-21-2024 08:32-0400 Systolic blood pressure 120 mm[Hg] Sanjuana Floro CNM Work Phone: [facility] 08-26-2024 08:56-0500 Body mass index (BMI) [Ratio] 29.25 kg/m2 Sanjuana Floro CNM Work Phone: [facility] 08-26-2024 08:56-0500 Body weight 83.46 kg Sanjuana Floro CNM Work Phone: [facility] 08-26-2024 08:56-0500 Diastolic blood pressure 70 mm[Hg] Sanjuana Floro CNM Work Phone: [facility] 08-26-2024 08:56-0500 Systolic blood pressure 112 mm[Hg] Sanjuana Floro CNM Work Phone: [facility] 07-21-2024 08:54-0500 Body mass index (BMI) [Ratio] 30.21 kg/m2 Sanjuana Marileeo CNM Work Phone: [facility] 07-21-2024 08:54-0500 Body weight 86.18 kg Sanjuana Marileeo CNM Work Phone: [facility] 07-21-2024 08:54-0500 Diastolic blood pressure 80 mm[Hg] Sanjuana Marileeo CNM Work Phone: [facility] 07-21-2024 08:54-0500 Systolic blood pressure 120 mm[Hg] Sanjuana Marileeo CNM Work Phone: [facility] 06-26-2024 10:20-0500 Body mass index (BMI) [Ratio] 30.53 kg/m2 [facility] 06-26-2024 10:20-0500 Body weight 87.09 kg [facility] Encounters Encounter Date Encounter Type Care [...] AM EDT Routine [facility] [address] [place] [phone] Sanjuana Varma, CNM [address] [place] [address] [facility] Start: 12-31-2024 End: 12-31-2024 Patient encounter procedure 12/31/2024 1:15 PM EDT Routine [facility] [address] [facility] [place] [address] Sanjuana Varma, CNM [address] [place] [address] [facility] Start: 12-30-2024 End: 12-30-2024 Patient encounter procedure 12/30/2024 10:15 AM EDT Routine [facility] [address] [facility] [place] [address] Sanjuana Varma, CNM [address] [place] [address] [facility] Start: 11-26-2024 End: 11-26-2024 Professional / ancillary services management 11/26/2024 8:45 AM EDT Ancillary Procedure [facility] [address] [place] [address] [facility] Start: 11-18-2024 End: 11-18-2025 [...] in second trimester Expected: 11/18/2024, Expires: 11/18/2025 [facility] Comment on above: Expected: 11/18/2024 , Expires: 11/18/2025 Start: 11-18-2024 End: 11-18-2024 Patient encounter procedure 11/18/2024 8:45 AM EDT Routine [facility] [address] [place] [phone] Sanjuana Varma, CNM [address] [place] [address] [facility] Start: 10-21-2024 End: 10-21-2024 Patient encounter procedure 10/21/2024 8:30 AM EDT Routine [facility] [address] [place] [phone] Sanjuana Varma, CNM [address] [place] [address] Arrived [facility] Comment on above: Arrived Start: 09-23-2024 End: 09-23-2024 Professional / ancillary services management 09/23/2024 9:00 AM EDT Ancillary Procedure [facility] [address] [id number] [facility] Start: 09-23-2024 End: 09-23-2024 Patient encounter procedure 09/23/2024 8:30 AM EDT Routine [facility] [address] [place] [address] Sanjuana Varma, SHE [address] [place], [place] [id number] [facility] Start: 08-26-2024 End: 08-26-2025 [...] AM EST Routine [facility] [address] [place] [address] Sanjuana Varma, [address] [id number] Arrived [facility] Comment on above: Arrived Start: 03-08-2024 Influenza vaccination Influenza Vacc ine (#1) [facility] Payers Date Payer Category Payer Private Health Insurance [employer] [id number] 2024 Unknown [id number] 2000 Unknown [id number] [id number] .2.1258 2000 Unknown [id number] 2.16.840.1.752898.3.579 .2.1258 2000 Unknown [id number] 2.16.840.1.620305.3.579 .2.1258 2000 Unknown [id number] 2.16.840.1.378212.3.579 .2.1258 2000 Unknown [id number] 2.16.840.1.946208.3.579 .2.1258 2000 Unknown [id number] 2.16.840.1.195430.3.579 .2.1258 2000 Unknown [id number] 2.16.840.1.238922.3.579 .2.1258 2000 Unknown [id number] 2.16.840.1.247473.3.579 .2.1258 2000 Unknown [id number] 2.16.840.1.793193.3.579 .2.1258 2000 Unknown [id number] 2.16.840.1.637474.3.579 .2.1258 2000 Unknown [id number] 2.16.840.1.184618.3.579 .2.9 Social History Date Type Detail Facility Start: 06-26-2024 Tobacco smoking stat [facility] Never smoked tobacco [facility] Start: 06-26-2024 Tobacco use and exposure Smoke less tobacco non-user [facility] Start: 06-26-2024 Alcoholic beverage intake Ex-drinker (finding) [facility] Start: 06-26-2024 History of Social function [facility] Start: 06-26-2024 Tobacco use panel [facility] Start: 05-14-2024 [facility] Start: 2000 Sex assigned at Not on file N [facility] Clinical Notes 06-26-2024 to 12-30-2024 Sanjuana [...] a routine visit. documented in this encounter [facility] 12-16-2024 History of Presen t illness Narrative [...] a routine visit. documented in this encounter [facility] 11-18-2024 History of Presen t illness Narrative [...] a routine visit. documented in this encounter [facility] 10-21-2024 History of Presen t illness Narrative [...] a routine visit. documented in this encounter [facility] 08-26-2024 History of Presen t illness Narrative [...] a routine visit. documented in this encounter [facility] 07-27-2024 Telephone encount er Note Franck has a hard time swallowing pills - the antibiotic sent in for her last week are huge , so she is asking for a liquid form to be called in ,please. Faye Thomas- [phone] [facility] 07-27-2024 Miscellaneous Notes Formattin g of this note might be different from the original. Franck has a hard time swallowing pills - the antibiotic sent in for her last week are huge , so she is asking for a liquid form to be called in ,please. Faye Thomas- [phone] documented in this encounter [facility] 07-21-2024 History of Presen t illness Narrative [...] a routine visit. documented in this encounter [facility] 06-26-2024 History of Presen t illness Narrative [...] reviewed this encounter and updated as appropriate: @RULESMARTLINK([id number],TOBYESPROV)@@ RULESMARTLINK([id number],ALGYESPROV)@@R KRISTEN ARTLINK([id number],MEDYESPROV)@@RULESMA RTLINK([id number],PROBYESPROV)@@RULESROSE RTLIN K([id number],MHYESPROV)@@RULESMARTLINK( [id number],SHYESPROV)@@RULESMARTLINK([id number], FHYESPROV)@@RULESMARTLINK([id number],SO HYESPROV)@ Review of Systems Objective Physical Exam [...] also given office phone number and [facility] number to call in case of an emergency or after hours needs. PVU and all questions answered. We did discuss place of delivery. Patient should plan to go to [facility] for all services unless an emergency and they need to go to the closest ER. We can make other arrangements possibly if patient would like to deliver at another facility but I did explain I am now at [facility] 100% of the time and would like [...] Care Teams (unrecognized sec tion and content) Security Orderly Relationship Specialty Start Date End Date Rachelle Gibson MD [address] [place] [address] PCP - General Family Medicine 11/13/22 Security Orderly Relationship Specialty Start Date End Date Rachelle Gibson MD [address] [place] [address] PCP - General Family Medicine 11/13/22 Security Orderly Relationship Specialty Start Date End Date Rachelle Gibson MD [address] [place] [address] PCP - General Family Medicine 11/13/22 Security Orderly Relationship Specialty Start Date End Date Rachelle Gibson MD [address] [place] [address] PCP - General Family Medicine 11/13/22 Security Orderly Relationship Specialty Start Date End Date Rachelle Gibson MD [address] [place] [address] PCP - General Family Medicine 11/13/22 Security Orderly Relationship Specialty Start Date End Date Rachelle Gibson MD [address] [place] [address] PCP - General Family Medicine 11/13/22 Security Orderly Relationship Specialty Start Date End Date Rachelle Gibson MD [address] [place] [address] PCP - General Family Medicine 11/13/22 Security Orderly Relationship Specialty Start Date End Date Rachelle Gibson MD [address] [place] [address] PCP - General Family Medicine 11/13/22 INFORMATION SOURCE (unrecogn ized section and content) DATE CREATED AUTHOR 01/02/2025 [facility] FOR RECORDS PERTAINING TO PATIENTS WHO ARE [...] BE BASED ON THE PRIMARY CLINICAL RECORDS. [facility]. provides no warranty or guarantee of the accuracy or completeness of information in this document.
[2025-01-03 13:53] LABS: Glucose Urine UA NEGATIVE (NEGATIVE)
[2025-01-03 14:03] LABS: Cast Seen? NONE SEEN #/LPF (NONE SEEN); Crystals Seen? None Seen #/HPF (None Seen); Urine Culture Indicated YES-LC
[2025-01-03] MEDS: BETAMETHASONE ACE/BETAMETHASONE SOD PHOS 30 MG/5 ML 12 MG IM (14:44)
--- OUTSIDE RECORDS SUMMARY | 2025-01-03 15:26 | XMS_ITS | CCD ---
Author Organization [facility] Care Team Providers Care Adjunct Mathematics Instructor Name Role Phone Arthur RAMIREZ, Rachelle Kapoor Primary Care Provider [phone] FLORO, SANJUANA L Attending Unavailable FLORO, SANJUANA [...] Drug Class(es) Dates Sig (Normalized) Sig (Original) Blood Pressure Monitoring (Blood Pressure Cuff) misc (1 source) Start: 12-31-2024 Blood Pressure Monitoring (Blood Pressure Cuff) misc Indications: Gestational hypertension without significant proteinuria in third trimester (HHS-HCC) 1 Units in the morning and 1 Units in the evening and 1 Units before bedtime. 1 each 12/31/2024 Active cephalexin 500 mg oral capsule (4 sources) Cephalosporin Antibacterial Start: 12-30-2024 End: 01-09-2025 cephalexin (Keflex) 500 MG capsule Indications: Elevated blood pressure affecting in third trimester, antepartum (HHS-HCC) , Acute cystitis without hematuria Take 1 capsule (500 mg) by mouth in the morning and 1 capsule (500 mg) at noon and 1 capsule (500 mg) in the evening and 1 capsule (500 mg) before bedtime. Do all this for 10 days. 40 capsule 12/30/2024 01/09/2025 Active labetalol hydrochloride 100 mg oral tablet (4 sources) beta-Adrenergic Azalea Start: 12-31-2024 End: 01-30-2025 take 1 tablet by mouth in the morning labetalol (Normodyne) 100 MG tablet Indications: Acute cystitis without hematuria Take 1 tablet (100 mg) by mouth in the morning and 1 tablet (100 mg) before bedtime. 60 tablet 2 12/31/2024 01/30/2025 Active Start: 12-30-2024 take 1 tablet by mouth once la betalol (Normodyne) 100 MG tablet Indications: Acute cystitis [...] Vit-Fe Fumarate-FA ( 1 PLUS 1 PO) (12 sources) Vit-Fe Fumarate-FA ( 1 PLUS 1 [...] Test Name Value Interpretation Reference Range Facility [facility] UA (CLEAN/CATCH) QUALITY ENG/HUNTER RO IF IND.on 01-03-2025 BILIRUBIN URINE Negative NEGATIVE [facility] BLOOD URINE Negative NEGATIVE [facility] Clarity (U) CLEAR CLEAR [facility] Color (U) LT. YELLOW YELLOW [facility] GLUCOSE URINE UA Negative NEGATIVE mg/dL [facility] Interpretation and review of laboratory results Abnormal [facility] Ketones Ql (U) Negative NEGATIVE mg/dL [facility] Leukocyte esterase Test strip Ql (U) MODERATE Abnormal NEGATIVE [facility] NITRITE URINE Negative NEGATIVE [facility] pH (U) 7.5 [pH] 5.0 - 9.0 [facility] PROTEIN URINE Negative NEG/TRACE mg/dL [facility] SPECIFIC GRAVITY URINE 1.020 1.005 - 1.025 [facility] URINE MICROSCOPIC INDICATED YES [facility] UROBILINOGEN URINE 0.2 EU/dL 0.2 - 1.0 EU/dL [facility] ALL CBC WITH AUTO DIFFon BASOPHILS ABSOLUTE AUTO 0 N [facility] Basophils/100 WBC (Bld) 0.3 % 0.2 - 2.0 % [facility] Eosinophils/100 WBC (Bld) 1.4 % 0.9 - 7.0 % [facility] Erythrocyte distribution width (RBC) [Ratio] 12.3 % 11.0 - 15.0 % [facility] Hematocrit (Bld) [Volume fraction] 33.7 % Low 36.0 - 48.0 % [facility] Hemoglobin (Bld) [Mass/Vol] 11.5 g/dL Low 12.0 - 16.0 g/dL [facility] IMMATURE GRANULOCYTES ABS AUTO 0.12 High [facility] Immature granulocytes/100 WBC (Bld) 0.9 % High 0.0 - 0.5 % [facility] Interpretation and review of laboratory results Abnormal [facility] LYMPHOCYTES ABSOLUTE AUTO 1.5 [facility] Lymphocytes/100 WBC (Bld) 11.6 % Low 20.5 - 60.0 % [facility] MCH (RBC) [Entitic mass] 29.2 pg 26. 7 - 34.0 pg [facility] (RBC) [Mass/Vol] 34.1 g/dL 29.9 - 35.2 g/dL [facility] MCV (RBC) [Entitic vol] 85.5 fL 81.0 - 99.0 fL [facility] MONOCYTES ABSOLUTE AUTO 0.9 High N [facility] Monocytes/100 WBC (Bld) 7 % 1.7 - 12.0 % [facility] NEUTROPHILS ABSOLUTE AUTO 10.4 High [facility] Neutrophils/100 WBC (Bld) 78.8 % High 43.0 - 75.0 % [facility] Platelet mean volume (Bld) [Entitic vol] 10.2 fL 9.5 - 13.5 fL [facility] TBH EO # 0.2 [facility]H PLT 312 [facility] TBH RBC 3.94 Low [facility] WBC 13.2 High [facility] US OB BPP W NON-STRESS on 12-30-2024 [place] [address] Ultrasound Report Signed Patient: FRANCK FOREMAN MR#: [id number] : 2000 Acct:[id number] Age/Sex: 24 / F ADM Date: Loc: [facility] 250-[address]: SANJUANA VARMA APRN, CNM Ordering Physician: SANJUANA VARMA APRN, CNM Date of Service: 12/30/24 Procedure(s): US OB BPP w non-stress Accession Number(s): [id number] cc: SANJUANA VARMA APRN, CNM; Physician,Non-Staff M.D. [facility] [place] [id number] Patient Name: FRANCK FOREMAN MRN: [facility]:[id number] date: 2000 Sex: F Assigned Patient Location: [facility] Current Patient Location: [facility] Accession/Order Number: [id number] Exam Date: 12/30/2024 12:57 Report Date: 12/30/2024 [...] Wadsworth M.D. 12/30/2024 12:58 PM Dictation Location: [place] [address] Electronically authenticated by: [id number] Y Date: 12/30/2024 12:58 Dictated By: Denver Wadsworth M.D. Signed By: 12/30/24 1301 DD/ 1258 TD/TT: Explosive Operator Grenade: [facility] Radiology, Radiologist, MD - 12/30/2024 [place] [address] Ultrasound Report Signed Patient: FRANCK FOREMAN MR#: [id number] : 2000 Acct:[id number] Age/Sex: 24 / F ADM Date: Loc: [facility] 250-[address]: SANJUANA VARMA APRN, CNM Ordering Physician: SANJUANA VARMA APRN, CNM Date of Service: 12/30/24 Procedure(s): US OB BPP w non-stress Accession Number(s): [id number] cc: SANJUANA VARMA APRN, CNM; Physician,Non-Staff [place] [id number] Patient Name: FRANCK FOREMAN MRN: [id number] date: 2000 Sex: F Assigned Patient Location: [facility] Current Patient Location: [facility] Accession/Order Number: [id number] Exam Date: 12/30/2024 12:57 Report Date: 12/30/2024 [...] Wadsworth M.D. 12/30/2024 12:58 PM Dictation Location: [place] [address] Electronically authenticated by: [id number] Y Date: 12/30/2024 12:58 Dictated By: Denver Wadsworth M.D. Signed By: 12/30/24 1301 DD/ 1258 TD/TT: Explosive Operator Grenade: [facility] Ruby Ribbon Radiology Study observation (narrative) [facility] US OB BPP W NON-STRESS Ordered By: Radiologist Radiology on 12-30-2024 [facility] Ruby Ribbon Work Phone: US OB FOLLOW UP TRANSABDOMIN [...] report is generated using voice recognition reporting ([employer]). On occasion [employer] erroneously drops words from the report or [...] report is generated using voice recognition reporting ([employer]). On occasion [employer] erroneously drops words from the report or replaces the spoken word with similar sounding words. Please call with any questions/concerns regarding this report.* Dictated and transcribed 09/23/24/dpd This report has been electronically signed and approved by the interpreting radiologist. Normal Not Available Laboratory - Cytologyon 07-08 Sole Leveler Cyto stain Nom (Cvx/Vag) [ID] [facility] Comment on above: ASD, CT(ASCP) screen ing location: [place] [address]. JEH, CT(ASCP) CT scr eening location: [place] [address]. Cytology study comment Cyto stain Matt (Cvx/Vag) [Interp] [facility] Comment on above: This Pap test has be en evaluated with computer assisted technology. Microorganism identified Cyto stain Nom (Cvx/Vag) [facility] Comment on above: Fungal organisms mor phologically consistent with Nora spp. Microscopic observation Cyto stain Nom (Cvx) [facility] Comment on above: Cytology Results: Ne gative for intraepithelial lesion or malignancy. Specimen source Cyto stain Nom (Cvx/Vag) [facility] Comment on above: Cervix Statement of adequacy Cyto stain (Cvx/Vag) [Interp] [facility] Comment on above: Satisfactory for mandie luation. Endocervical/transformation zone component absent. Laboratory - Microbiology an d Antimicrobial susceptibilityon 07-25-2024 HPV 16 DNA Probe+sig amp Ql (Cvx) Not detected Not Detected [facility] HPV 16+18+31+33+35+39+45+51+ 52+56+58+59+66+68 DNA JUAN DIEGO+probe Ql (Cvx) Detected Abnormal NOT DETECTED [facility] Comment on above: Detected One or more High Risk HPV types (16,18,31,33, 35,39,45,51,52,56,58,59,66,68) was detected. Methodology: Real Time PCR HPV 18 DNA Probe+sig amp Ql (Cvx) Not detected Not Detected [facility] Comment on above: Methodology: Real Ti me PCR No Panel Informationon 07-25 (ALWAYS MESSAGE) [facility] Comment on above: EXPLANATORY NOTE: The Pap [...] Interpretation and review of laboratory results Abnormal [facility] Last menstrual period start date [facility] Comment on above: NONE GIVEN Performing Organization Information Site ID: AMD Name: [email or web address] [facility] Address: [address] [place], [place] Director: Hiren Ash M.D.,PhD Site ID: [id number] Name: [facility] Address: [address], [address] [place] [phone] Director: Bennett Mays MD [facility] Performing Organization Information Site ID: AMD Name: [facility] [facility] Address: [address] [place] [address] [place] [address] Director: Hiren Ash M.D.,PhD [facility] ABO/Rhon 06-30-2024 ABO group Nom (Bld) A [facility] Rh Nom (Bld) Negative [facility] Comment on above: For additional information, please refer to http://[employer].De Novo/faq/SVR545 (This link is being provided for informational/ educational purposes only.) Antibody screenon 06-30-2024 Blood group antibody screen Ql Detected [facility] Comment on above: Reference range No antibodies detected This assay is a screening test for the detection of red blood cell antibodies. The test is not to be used for pretransfusion screening or for the medical management of an alloimmunized . CBC panel Auto (Bld)on 06-30 Erythrocyte distribution width (RBC) [Ratio] 12.2 % 11.0 - 15.0 % [facility] Hematocrit (Bld) [Volume fraction] 42.3 % 35.0 - 45.0 % [facility] Hemoglobin (Bld) [Mass/Vol] 14.3 g/dL 11.7 - 15.5 g/dL [facility] MCH (RBC) [Entitic mass] 30 pg 27. 0 - 33.0 pg [facility] MCHC (RBC) [Mass/Vol] 33.8 g/dL 32.0 - 36.0 g/dL [facility] Comment on above: For adults, a slight decrease in the calculated MCHC value (in the range of 30 to 32 g/dL) is most likely not clinically significant; however, it should be interpreted with caution in correlation with other red cell parameters and the patient's clinical condition. MCV (RBC) [Entitic vol] 88.7 fL 80.0 - 100.0 fL [facility] Platelet mean volume (Bld) [Entitic vol] 10.2 fL 7.5 - 12.5 fL [facility] Platelets (Bld) [#/Vol] 365 10*3/uL [facility] RBC (Bld) [#/Vol] 4.77 10*6/uL [facility] WBC (Bld) [#/Vol] 10.2 10*3/uL [facility] HIV-1 and HIV-2 antibodieson 06-30-2024 HIV 1+2 Ab+HIV1 p24 Ag IA Ql Non-Reactive NON-REACTIVE [facility] Comment on above: HIV-1 [...] purpose. For additional information please refer to http://[employer].Pebble/faq/JFC932 (This link is being provided for informational/ educational purposes only.) The performance of this assay has not been clinically validated in patients less than 2 years old. Hemoglobin A1con 06-30-2024 HbA1c (Bld) [Mass fraction] 5.3 % [facility] Comment on above: For the purpose of s creening for the presence of diabetes: <5.7% Consistent with the absence of diabetes 5.7-6.4% Consistent with increased risk for diabetes (prediabetes) > or =6.5% Consistent with diabetes This assay result is consistent with a decreased risk of diabetes. Currently, no consensus exists regarding use of hemoglobin A1c for diagnosis of diabetes in children. According to [place] Diabetes Association (ADA) guidelines, hemoglobin A1c <7.0% represents optimal control in non- diabetic patients. Different metrics may apply to specific patient populations. Standards of Medical Care in Diabetes(ADA). Hepatitis B surface antigeno n 06-30-2024 HBV surface Ag IA Ql Non-Reactive NON-REACTIVE [facility] Comment on above: For additional information, please refer to http://education.Pebble/faq/ONY226 (This link is being provided for informational/ educational purposes only.) Hepatitis C antibodyon 06-30 HCV Ab IA Ql Non-Reactive NON-REACTIVE [facility] Comment on above: HCV antibody was non-reactive. There is no laboratory evidence of HCV infection. In most cases, no further action is required. However, if recent HCV exposure is suspected, a test for HCV RNA (test code 32262) is suggested. For additional information please refer to http://education.Pebble/faq/VKB74j6 (This link is being provided for informational/ educational purposes only.) No Panel Informationon 06-30 MULTIPLE COLLECTION TIMES FOR SAME TEST TYPE. [facility] Organization Information Site ID: QPT Name: [facility] Address: [address] [place] [address], [address] [place] [phone] Director: Bennett Mays MD [facility] RPRon 06-30-2024 Reagin Ab RPR Ql (S) Non-Reactive NON-REACTIVE [facility] Rubella antibody, IgGon 06-08 Rubella virus IgG Qn (S) 2.24 [IU]/mL Index [facility] Comment on above: Index Interpretation ----- <0.90 Not consistent with immunity 0.90-0.99 Equivocal > or = 1.00 Consistent with immunity The presence of rubella IgG antibody suggests immunization or past or current infection with rubella virus. TSH W/REFLEX TO FT4on 2023 TSH Qn 1.07 m[IU]/L mIU/L [facility] Comment on above: Reference Range > or = 20 Years 0.40-4.50 Ranges First trimester 0.26-2.66 Second trimester 0.55-2.73 Third trimester 0.43-2.91 Bacteria identified Cx Nom ( U)on 06-29-2024 Appearance (U) Adequate [facility] Bacteria identified Cx Nom (Isol) SEE NOTE Abnormal [facility] Comment on above: Greater than 100,000 [...] cephalexin and loracarbef. Internal identifier for Provider [id number] [facility] Specimen source Nom (Unsp spec) URINE [facility] STATUS FINAL [facility] DRUG TOX MONITORIGN 6 W/ CON F,URINEon 06-29-2024 0-Mrmtfcvhzt-9,5-Dimethy l-3,3-Diphenylpyrrolidin e (EDDP) Ql (U) Negative NINF - 100 ng/mL [facility] Amphetamines Ql (U) Negative NINF - 5 00 ng/mL [facility] Barbiturates Ql (U) Negative NINF - 3 00 ng/mL [facility] Benzodiazepines Ql (U) Negative NINF - 100 ng/mL [facility] Benzoylecgonine Ql (U) Negative NINF - 150 ng/mL [facility] Opiates Ql (U) Negative NINF - 100 ng/mL [facility] oxyCODONE Ql (U) Negative NINF - 100 ng/mL [facility] Phencyclidine Ql (U) Negative NINF - 25 ng/mL [facility] Tetrahydrocannabinol Screen method >20 ng/mL Ql (U) Negative NINF - 20 ng/mL [facility] N. gonorrhoeae DNA JUAN DIEGO+probe Ql (Cervical mucus)on 06-29-2024 C. trachomatis rRNA JUAN DIEGO+probe Ql (Unsp spec) Not detected NOT DETECTED [facility] N. gonorrhoeae rRNA JUAN DIEGO+probe Ql (Unsp spec) Not detected NOT DETECTED [facility] No Panel Informationon 06-29 (ALWAYS MESSAGE) [facility] Comment on above: See Note 1 Note 1 This drug testing is for medical treatment only. Analysis was performed as non-forensic testing and these results should be used only by healthcare providers to render diagnosis or treatment, or to monitor progress of medical conditions. For assistance with interpreting these drug results, please contact a [facility] Toxicology Specialist: [phone] ( ), M-F, 8am-6pm EST. The analytical perfo rmance characteristics of this assay, when used to test SurePath(TM) specimens have been determined by [facility]. The modifications have not been cleared or approved by the FDA. This assay has been validated pursuant to the CLIA regulations and is used for clinical purposes. For additional information, please refer to https://education.Pebble/faq/KPZ658 (This link is being provided for information/ educational purposes only.) Interpretation and review of laboratory results Abnormal [facility] SPLIT 06/26/2024 FROM [id number] [facility] Organization Information Site ID: QPT Name: [facility] Address: [address] [place] [address], [address] [place] [phone] Director: Bennett Mays MD [facility] URINALYSIS MICROSCOPICon Bacteria LM.HPF (Urine sed) [#/Area] MANY Abnormal NONE SEEN /HPF [facility] Epithelial cells.squamous LM.HPF (Urine sed) [#/Area] 10-20 Abnormal < OR = 5 /HPF [facility] Hyaline casts (Urine sed) [#/Area] 0-5 Abnormal NONE SEEN /LPF [facility] RBC LM.HPF (Urine sed) [#/Area] NONE SEEN < OR = 2 /HPF [facility] WBC LM.HPF (Urine sed) [#/Area] 10-20 Abnormal < OR = 5 /HPF [facility] HCG ( test) Ql (U)o n 06-26-2024 Interpretation and review of laboratory results Abnormal [facility] Preg Test, Ur Positive Negative [facility] Vital Signs Date Time Vital Sign Value Performing Clinician Faci lity 12-30-2024 10:16-0400 Body mass index (BMI) [Ratio] 31.16 kg/m2 Sanjuana Varma CNM Work Phone: [facility] 12-30-2024 10:16-0400 Body weight 88.91 kg Sanjuana Floro CNM Work Phone: [facility] 12-30-2024 10:16-0400 Diastolic blood pressure 90 mm[Hg] Sanjuana Floro CNM Work Phone: [facility] Comment on above: 150/90 and 140/94 12-30-2024 10:16-0400 Systolic blood pressure 140 mm[Hg] Sanjuana Floro CNM Work Phone: [facility] Comment on above: 150/90 and 140/94 12-16-2024 09:16-0400 Body mass index (BMI) [Ratio] 31.16 kg/m2 Sanjuana Floro CNM Work Phone: [facility] 12-16-2024 09:16-0400 Body weight 88.91 kg Sanjuana Floro CNM Work Phone: [facility] 12-16-2024 09:16-0400 Diastolic blood pressure 80 mm[Hg] Sanjuana Floro CNM Work Phone: [facility] 12-16-2024 09:16-0400 Systolic blood pressure 118 mm[Hg] Sanjuana Floro CNM Work Phone: [facility] 11-18-2024 08:51-0400 Body mass index (BMI) [Ratio] 31 kg/m2 Sanjuana Floro CNM Work Phone: [facility] 11-18-2024 08:51-0400 Body weight 88.45 kg Sanjuana Floro CNM Work Phone: [facility] 11-18-2024 08:51-0400 Diastolic blood pressure 80 mm[Hg] Sanjuana Floro CNM Work Phone: [facility] 11-18-2024 08:51-0400 Systolic blood pressure 120 mm[Hg] Sanjuana Floro CNM Work Phone: [facility] 10-21-2024 08:32-0400 Body mass index (BMI) [Ratio] 30.53 kg/m2 Sanjuana Floro CNM Work Phone: [facility] 10-21-2024 08:32-0400 Body weight 87.09 kg Sanjuana Floro CNM Work Phone: [facility] 10-21-2024 08:32-0400 Diastolic blood pressure 78 mm[Hg] Sanjuana Floro CNM Work Phone: [facility] 10-21-2024 08:32-0400 Systolic blood pressure 120 mm[Hg] Sanjuana Floro CNM Work Phone: [facility] 08-26-2024 08:56-0500 Body mass index (BMI) [Ratio] 29.25 kg/m2 Sanjuana Floro CNM Work Phone: [facility] 08-26-2024 08:56-0500 Body weight 83.46 kg Sanjuana Floro CNM Work Phone: [facility] 08-26-2024 08:56-0500 Diastolic blood pressure 70 mm[Hg] Sanjuana Floro CNM Work Phone: [facility] 08-26-2024 08:56-0500 Systolic blood pressure 112 mm[Hg] Sanjuana Floro CNM Work Phone: [facility] 07-21-2024 08:54-0500 Body mass index (BMI) [Ratio] 30.21 kg/m2 Sanjuana Floro CNM Work Phone: [facility] 07-21-2024 08:54-0500 Body weight 86.18 kg Sanjuana Floro CNM Work Phone: [facility] 07-21-2024 08:54-0500 Diastolic blood pressure 80 mm[Hg] Sanjuana Floro CNM Work Phone: [facility] 07-21-2024 08:54-0500 Systolic blood pressure 120 mm[Hg] Sanjuana Floro CNM Work Phone: [facility] 06-26-2024 10:20-0500 Body mass index (BMI) [Ratio] 30.53 kg/m2 [facility] 06-26-2024 10:20-0500 Body weight 87.09 kg [facility] Encounters Encounter Date Encounter Type Care Provider Facility Start: 01-03-2025 End: 01-03-2025 [facility] Result Encounter Sanjuana L Floro CNM Work Phone: [facility] Unsolicited Start: 01-03-2025 End: 01-03-2025 [facility] Result Encounter Sanjuana L Floro CNM Work Phone: [facility] Unsolicited Start: 12-31-2024 End: 12-31-2024 Bamboo flowsheet Sanjuana L Floro CNM Work Phone: [facility] Start: 12-31-2024 End: 12-31-2024 Bamboo flowsheet Sanjuana L Floro CNM Work Phone: [facility] Start: 12-31-2024 End: 12-31-2024 ambulatory SANJUANA L FLORO Not Available Start: 12-30-2024 End: 12-30-2024 Bamboo flowsheet Sanjuana L Floro CNM Work Phone: [facility] Start: 12-30-2024 End: 12-30-2024 Bamboo flowsheet Sanjuana L Floro CNM Work Phone: [facility] Start: 12-30-2024 End: 12-30-2024 Cl[facility] Result Encounter Sanjuana L Floro CNM Work Phone: [facility] Unsolicited [...] 10-21-2024 End: 10-21-2024 Subsequent care visit Sanjuana Mariah Hunto CNM Work Phone: [facility] Comment [...] 08-26-2024 End: 08-26-2024 Subsequent care visit Sanjuana Mariah Floro CNM Work Phone: [facility] [...] 07-21-2024 End: 07-21-2024 Gynecological examination normal Sanjuana L Floro CNM Work Phone: [facility] Start: 07-21-2024 End: 07-21-2024 Periodic preventive med est patient 18-39 yrs Sanjuana L Floro CNM Work Phone: [facility] [...] Date Procedure Procedure Detail Performing Clinician Start: 01-03-2025 [facility] UA (CLEAN/CATCH) QUALITY ENG/MICRO IF IND. Sanjuana Hunto CNM Work Phone: Start: 12-30-2024 US OB BPP W NON-STRESS Sanjuana Mariah Hunto CNM Work Phone: Start: 12-30-2024 ALL CBC WITH AUTO DIFF Sanjuana Hunto CNM Work Phone: Start: 07-21-2024 HPV GENOTYPES 16 AND 18, CERVICAL Sanjuana Mariah Hunto CNM Work Phone: Start: 07-21-2024 THINPREP IMAGING PAP AND HPV DNA REFLEX HPV 16,18 Sanjuana Mariah Hunto CNM Work Phone: Start: 06-26-2024 Culture bacterial quanttative colony count urine Sanjuana Mariah Hunto CNM Work Phone: Start: 06-26-2024 DRUG TOX MONITORIGN 6 W/ CONF,URINE Sanjuana Mariah Hunto CNM Work Phone: Start: 06-26-2024 URINALYSIS MICROSCOPIC Sanjuana Mariah Hunto CNM Work Phone: Start: 06-26-2024 Urine test visual color cmprsn meths Sanjuana Hunto CNM Work Phone: Start: 06-26-2024 Antibody screen rbc each serum technique Sanjuana Mariah Hunto CNM Work Phone: Start: 12-20-2024 Hemoglobin glycosyla corina a1c Sanjuana Mariah Varma CN Work Phone: Start: 06-26-2024 Iaad ia hepatitis b surface antigen Sanjuana Mariah Varma CN Work Phone: Start: 06-26-2024 TSH W/REFLEX TO FT4 Zoya Lemus Kojo CN Work Phone: Plan of Treatment Date Care Activity Detail Author Start: 03-08-2025 Influenza vaccination Influenz a Vaccine (Season Ended) [facility] Start: 01-12-2025 End: 01-12-2025 Patient encounter procedure 01/12/2025 9:15 AM EDT Routine [facility] [address] [facility] [phone] Sanjuana Varma, CNM [address] [facility] [place] [address] [facility] Start: 01-04-2025 End: 01-04-2025 Patient encounter procedure 01/04/2025 2:30 PM EDT Routine [facility] [address] [facility] [place] [address] Sanjuana Varma, CNM [address] [facility] [place] [address] [facility] Start: 12-31-2024 End: 12-31-2024 Patient encounter procedure 12/31/2024 1:15 PM EDT Routine [facility] [address] [facility] [address] Sanjuana Varma, CNM [address] [facility] [place] [address] [facility] Start: 12-30-2024 End: 12-30-2024 Patient encounter procedure 12/30/2024 10:15 AM EDT Routine [facility] [address] [facility] [id number] [phone] Sanjuana Varma, CNM [address] [place] [address] [facility] Start: 11-26-2024 End: 11-26-2024 Professional / ancillary services management 11/26/2024 8:45 AM EDT Ancillary Procedure [facility] [address] [id number] [facility] Start: 11-18-2024 End: 11-18-2025 [...] in second trimester Expected: 11/18/2024, Expires: 11/18/2025 [facility] Comment on above: Expected: 11/18/2024 , Expires: 11/18/2025 Start: 11-18-2024 End: 11-18-2024 Patient encounter procedure 11/18/2024 8:45 AM EDT Routine [facility] [address] [place] [address] Sanjuana Varma, CNM [address] [place], [place] [phone] [facility] Start: 10-21-2024 End: 10-21-2024 Patient encounter procedure 10/21/2024 8:30 AM EDT Routine [facility] [address] [facility] [phone] Sanjuana Varma, CNM [address] [facility] [place] [address] Arrived [facility] Comment on above: Arrived Start: 09-23-2024 End: 09-23-2024 Professional / ancillary services management 09/23/2024 9:00 AM EDT Ancillary Procedure [facility] [address] [place] [address] [facility] Start: 09-23-2024 End: 09-23-2024 Patient encounter procedure 09/23/2024 8:30 AM EDT Routine [facility] [address] [facility] [phone] Sanjuana Varma, SHEM [address] [facility] [place] [address] [facility] Start: 08-26-2024 End: 08-26-2025 [...] AM EST Routine [facility] [address] [facility] [phone] Sanjuana Varma, CNM [address] [facility] [place] [address] Arrived [facility] Comment on above: Arrived Start: 03-08-2024 Influenza vaccination Influenza Vacc ine (#1) [facility] Payers Date Payer Category Payer Private Health Insurance [employer] [id number] 2024 Unknown [id number] 2000 Unknown [id number] [id number] .2.1258 2000 Unknown [id number] 2.16.840.1.711012.3.579 .2.1258 2000 Unknown [id number] 2.16.840.1.691610.3.579 .2.1258 2000 Unknown [id number] 2.16.840.1.534608.3.579 .2.1258 2000 Unknown [id number] 2.16.840.1.031540.3.579 .2.1258 2000 Unknown [id number] 2.16.840.1.239172.3.579 .2.1258 2000 Unknown [id number] 2.16.840.1.377781.3.579 .2.1258 2000 Unknown [id number] 2.16.840.1.517247.3.579 .2.1258 2000 Unknown [id number] 2.16.840.1.961002.3.579 .2.1258 2000 Unknown [id number] 2.16.840.1.896164.3.579 .2.1259 2000 Unknown [id number] [id number] .2.1259 Social History Date Type Detail Facility Start: 06-26-2024 [facility] Start: 06-26-2024 Tobacco use and exposure Smoke less tobacco non-user [facility] Start: 06-26-2024 Alcoholic beverage intake Ex-drinker (finding) [facility] Start: 06-26-2024 History of Social function [facility] Start: 06-26-2024 Tobacco use panel [facility] Start: 05-14-2024 [facility] Start: 2000 Sex assigned at Not on file N [facility] Clinical Notes 06-26-2024 to 12-30-2024 Sanjuana Varma CNM - 12/30/2024 10:15 AM EDTSHE Fontanez - 12/16/2024 9:00 AM EDTSHE Fontanez - 11/18/2024 8:45 AM EDTSHE Fontanez - 10/21/2024 8:30 AM EDT Note Date & Type Note Facility 12-30-2024 History of Presen t illness Narrative Subjective No chief complaint on file. Franck Foreman is a 24 y.o. at 34w6d with [...] a routine visit. documented in this encounter [facility] 12-16-2024 History of Presen t illness Narrative Subjective No chief complaint on file. Franck Foreman is a 24 y.o. at 32w6d [...] a routine visit. documented in this encounter [facility] 11-18-2024 History of Presen t illness Narrative Subjective No chief complaint on file. Franck Foreman is a 24 y.o. at 28w6d with [...] Subjective No chief complaint on file. Franck Foreman is a 24 y.o. at 28w6d with [...] a routine visit. documented in this encounter [facility] 10-21-2024 History of Presen t illness Narrative Subjective No chief complaint on file. Franck Foreman is a 24 y.o. at 24w6d with [...] a routine visit. documented in this encounter [facility] 08-26-2024 History of Presen t illness Narrative Subjective No chief complaint on file. Franck Foreman is a 24 y.o. at 16w6d with [...] a routine visit. documented in this encounter [facility] 07-27-2024 Telephone encount er Note Franck has a hard time swallowing pills - the antibiotic sent in for her last week are huge , so she is asking for a liquid form to be called in ,please. Faye Thomas- [phone] [facility] 07-27-2024 Miscellaneous Notes Formattin g of this note might be different from the original. Franck has a hard time swallowing pills - the antibiotic sent in for her last week are huge , so she is asking for a liquid form to be called in ,please. Faye Thomas- [phone] documented in this encounter [facility] 07-21-2024 History of Presen t illness Narrative Subjective No chief complaint on file. Franck Foreman is a 24 y.o. at 11w5d with [...] a routine visit. documented in this encounter [facility] 06-26-2024 History of Presen t illness Narrative Subjective Franck Foreman is a 24 y.o. at 8w1d with [...] reviewed this encounter and updated as appropriate: @RULESJUDYTLPAULINE([id number],TOBYESPROV)@@ RULESMARTLINK([id number],ALGYESPROV)@@R KRISTEN ARTLINK([id number],MEDYESPROV)@@BIBIANA RTLINK([id number],PROBYESPROV)@@RULESROSE RTLIN K([id number],MHYESPROV)@@RULESEDUIN( [id number],SHYESPROV)@@JOANIE([id number], FHYESPROV)@@JOANIE([id number],SO HYESPROV)@ Review of Systems Objective Physical Exam [...] I did explain I am now at [place] 100% of the time and would like [...] Care Teams (unrecognized sec tion and content) Adjunct Mathematics Instructor Relationship Specialty Start Date End Date Rachelle Gibson MD [address] [place] [address] PCP - General Family Medicine 11/13/22 Adjunct Mathematics Instructor Relationship Specialty Start Date End Date Rachelle Gibson MD [address] [place] [address] PCP - General Family Medicine 11/13/22 Adjunct Mathematics Instructor Relationship Specialty Start Date End Date Rachelle Gibson MD [address] [place] [address] PCP - General Family Medicine 11/13/22 Adjunct Mathematics Instructor Relationship Specialty Start Date End Date Rachelle Gibson MD [address] [place] [address] PCP - General Family Medicine 11/13/22 Adjunct Mathematics Instructor Relationship Specialty Start Date End Date Rachelle Gibson MD [address] [place] [address] PCP - General Family Medicine 11/13/22 Adjunct Mathematics Instructor Relationship Specialty Start Date End Date Rachelle Gibson MD [address] [facility] [place] [address] PCP - General Family Medicine 11/13/22 Adjunct Mathematics Instructor Relationship Specialty Start Date End Date Rachelle Gibson MD [address] [facility] [place] [address] PCP - General Family Medicine 11/13/22 Adjunct Mathematics Instructor Relationship Specialty Start Date End Date Rachelle Gibson MD [address] [facility] [place] [address] PCP - General Family Medicine 11/13/22 Adjunct Mathematics Instructor Relationship Specialty Start Date End Date Rachelle Gibson MD [address] [place] [address] PCP - General Family Medicine 11/13/22 INFORMATION SOURCE (unrecogn ized section and content) DATE CREATED AUTHOR 01/02/2025 [facility] FOR RECORDS PERTAINING TO PATIENTS WHO [...] BE BASED ON THE PRIMARY CLINICAL RECORDS. [email or web address] provides no warranty or guarantee of the accuracy or completeness of information in this document.
[2025-01-03 16:01] LABS: Cannabinoid Screen Urine NEGATIVE (NEGATIVE); Methamphetamines Screen Urine NEGATIVE (NEGATIVE); Tricyclic Antidepressant Urine NEGATIVE (NEGATIVE)
[2025-01-03 16:31] LABS: Hematocrit 35.0 % (36.0-48.0); Hemoglobin 11.7 g/dL (12.0-16.0); Mean Corpuscular HGB Conc 33.4 g/dL (29.9-35.2); Mean Corpuscular Hemoglobin 28.8 pg (26.7-34.0); Mean Corpuscular Volume 86.2 fL (81.0-99.0); Platelet Count 304 10^3/uL (150-450); Red Blood Count 4.06 10^6/uL (4.20-5.40); White Blood Count 15.1 10^3/uL (4.0-11.0)
[2025-01-03] MEDS: OXYTOCIN/0.9 % SODIUM CHLORIDE 10 UNITS/500 ML PLAST..BAG 6 UNIT IV (19:52)
[2025-01-03] MEDS: PENICILLIN G POTASSIUM 2,500,000 UNIT in 0.9 % SODIUM CHLORIDE 50 ML 100 UNIT IV (19:52)
--- NOTE | 2025-01-03 20:01 | P.EN_ITS ---
Event Note Event Note: CNM to room to assess patient. SVE 5-6/90/-2 patient rates her pain a 3 on 1- 10 scale. She is very tolerant of contractions. Pitocin infusing and patient tolerating well
[2025-01-03] MEDS: ROPIVACAINE HCL/PF 400 MG/200 ML PREMIX 10 MG EPIDURAL (21:58)
[2025-01-03] MEDS: LIDOCAINE VISCOUS 2% 15 ML SOLUTION 5 ML TOPICAL (23:50)
[2025-01-03] MEDS: LIDOCAINE HCL 1% 200 MG/20 ML MDV INJ (23:55)
[2025-01-04] VITALS (10 sets, daily range): BP systolic 113–141; BP diastolic 59–87; PULSE 72–88; TEMP 36.6–36.7
[2025-01-04] MEDS: OXYTOCIN/0.9 % SODIUM CHLORIDE 20 UNITS/1,000 ML PLAST..BAG 125 UNIT IV (00:13)
--- NOTE | 2025-01-04 00:48 | PM.OBPRCVD ---
Procedure events: Labor < 37 Weeks, Labor Augmentation, Premature Rupture of Membrane and Prolonged Rupture of Membrane Induction method: none Delivery augmentation: pitocin Delivery monitor: external FHT and external uterine Route of delivery: Episiotomy Description: right mediolateral L&D Laceration Description: perineal - 2nd degree Delivery repair: Vicryl Estimated blood loss (mL): 250 Anesthesia type: Epidural Disposition: no change Delivery date: 01/04/25 Gender: female presentation: vertex Placental delivery description: Spontaneous cord description: 3 Vessels heart rate - 1 minute: 100 bpm or Greater respiratory effort - 1 minute: Spontaneous/Strong Cry muscle tone - 1 minute: Active Movement reflex response - 1 minute: Prompt Response color - 1 minute: Bluish Hands or Feet total score - 1 minute: 9 heart rate - 5 minute: 100 bpm or Greater respiratory effort - 5 minute: Spontaneous/Strong Cry muscle tone - 5 minute: Active Movement reflex response - 5 minute: Prompt Response color - 5 minute: Bluish Hands or Feet total score - 5 minute: 9
[2025-01-04] MEDS: GLYCERIN/WITCH HAZEL PADS 1 PAD TOPICAL (03:47)
[2025-01-04] MEDS: BENZOCAINE/MENTHOL 85 GRAM SPRAY BOTTLE 1 APPLIC TOPICAL (03:47)
[2025-01-04] MEDS: IBUPROFEN 400 MG TABLET 800 MG PO ×2 (08:31→17:09)
[2025-01-04] MEDS: RHO(D) IMMUNE GLOBULIN 1,500 UNIT SYRINGE 1500 UNIT IM (10:55)
[2025-01-05 00:15] VITALS: BP 121/71; PULSE 90; TEMP 36.7
[2025-01-05] MEDS: IBUPROFEN 400 MG TABLET 800 MG PO ×3 (00:20→16:49)
[2025-01-05 06:27] LABS: Hematocrit 31.5 % (36.0-48.0); Hemoglobin 10.2 g/dL (12.0-16.0); Immature Granulocytes Abs Auto 0.17 10^3/uL (0.00-0.03); Immature Granulocytes Pct Auto 1.1 % (0.0-0.5); Lymphocytes Absolute Auto 2.6 10^3/uL (1.2-3.8); Mean Corpuscular HGB Conc 32.4 g/dL (29.9-35.2); Mean Corpuscular Hemoglobin 28.4 pg (26.7-34.0); Mean Corpuscular Volume 87.7 fL (81.0-99.0); Platelet Count 321 10^3/uL (150-450); Red Blood Count 3.59 10^6/uL (4.20-5.40); White Blood Count 16.0 10^3/uL (4.0-11.0)
[2025-01-05 08:55] VITALS: TEMP 36.7
[2025-01-05 08:58] VITALS: BP 128/83; PULSE 108
--- NOTE | 2025-01-05 12:31 | P.OBPN_ITS ---
OB - PN: Subj Subjective Patient comments: no complaints [place] status: doing well feeding status: exclusively Exam Constitutional Vital Signs, click to edit/add: Last Vital Signs Temp 98.0 F 01/05/25 00:15 Pulse 108 H 01/05/25 08:58 Resp 16 01/05/25 00:15 BP 128/83 01/05/25 08:58 O2 Del Method Room Air 01/05/25 00:16 Documenting provider has reviewed patient's vital signs: yes Common normals: no apparent distress Exam limitations: altered mental status General appearance: cooperative Orientation/consciousness: Yes awake, Yes oriented to person, Yes oriented to place and Yes oriented to time HENMT Common normals: normocephalic Head and scalp: normal to inspection Face and sinus: normal facial exam Eye Common normals: EOMs intact bilaterally General eye: normal appearance of both eyes Visual acuity: acuity normal Neck & C-Spine Common normals: full ROM General: normal visual inspection Lymph Lymphatic: no lymphadenopathy noted Chest Common normals: inspection of chest normal Respiratory Common normals: normal respiratory effort Effort & inspection: able to speak in complete sentences Auscultation: clear to auscultation bilaterally Cardio Common normals: regular rate and regular rhythm Rate: regular rate Rhythm: regular rhythm GI Common normals: Normal to inspection, nondistended, normoactive bowel sounds present Inspection: normal to inspection Auscultation: normoactive bowel sounds Palpation: soft Rectal Exam - Female: deferred Common normals: no CVA tenderness Back & Pelvis Common normals: no CVA tenderness Extremity Common normals: normal to inspection and full ROM General: normal exam except as noted Neuro Common normals: oriented x3 Sensorium/orientation: awake, alert, oriented to person, oriented to place and oriented to time Psych Common normals: mental status grossly normal, thought process normal, cooperative, affect normal, speech normal, activity/motor behavior normal, denies hallucinations, denies homicidal ideation and denies suicidal ideation Appearance: grossly normal Attitude: calm Speech: normal speech Results Labs Labs: Short CBC 01/05/25 Range/Units 06:17 WBC 16.0 H (4.0-11.0) 10^3/uL Hgb 10.2 L (12.0-16.0) g/dL Hct 31.5 L (36.0-48.0) % Plt Count 321 (150-450) 10^3/uL OB - PN: A/P Plan - Vaginal Delivery day: 1 Plan: routine care Time Spent with Patient Time: Total time spent is greater than 50% in coordination of care (as documented) at patient's floor/unit and/or counseling patient: Total time spent with greater than 50% in coordination of care (as documented) at patient's floor/unit and/or counseling patient: less than 15 minutes
[2025-01-05 16:00] VITALS: TEMP 36.8
[2025-01-05 16:03] VITALS: BP 144/75; PULSE 90
[2025-01-05 22:47] VITALS: BP 142/83; PULSE 83; TEMP 37
[2025-01-06] MEDS: IBUPROFEN 400 MG TABLET 800 MG PO ×2 (01:45→08:15)
--- NOTE | 2025-01-06 07:40 | PM.OBPN ---
OB - PN: Subj Subjective Patient comments: no complaints and pain well controlled [place] status: doing well Exam Constitutional Vital Signs, click to edit/add: Last Vital Signs Temp 98.6 F 01/05/25 22:47 Pulse 83 01/05/25 22:47 Resp 18 01/05/25 16:00 BP 142/83 H 01/05/25 22:47 O2 Del Method Room Air 01/05/25 23:30 Documenting provider has reviewed patient's vital signs: yes Common normals: no apparent distress Respiratory Common normals: normal respiratory effort and clear to auscultation bilaterally Cardio Common normals: regular rate and regular rhythm GI Common normals: Normal to inspection, nondistended, normoactive bowel sounds present Extremity Common normals: no clubbing, cyanosis or edema and no calf tenderness OB - PN: A/P Plan - Vaginal Delivery day: 2 Plan: routine care, discharge home and follow up 6 weeks Time Spent with Patient Time: Total time spent is greater than 50% in coordination of care (as documented) at patient's floor/unit and/or counseling patient: Total time spent with greater than 50% in coordination of care (as documented) at patient's floor/unit and/or counseling patient: less than 15 minutes
[2025-01-06 08:16] VITALS: BP 141/91; PULSE 66; TEMP 36.6
== END 2025-01-06 12:15 | disposition home or self-care (01) | DRG 807 ==
LOC: FBCO 13:21 → FBC 14:03
PROVIDERS: Admitting Provider Midwife; Visit Provider Midwife
DX: O42.913 Preterm premature rupture of membranes, unspecified as to length of time between rupture and onset of labor, third trimester (principal); Z37.0 Single live birth; Z3A.35 35 weeks gestation of pregnancy; O26.893 Other specified pregnancy related conditions, third trimester; Z67.11 Type A blood, Rh negative; Z87.440 Personal history of urinary (tract) infections
CPT/HCPCS: 36415; 59025; 59050; 59410; 80307; 81001; 84112; 85025; 85027; 85461; 86850; 86900; 86901; 87086; 87420; 87804; 87811; 87880; 96372; J0702; J2540; J2791; J2795